=== PATIENT | female | born 1965 | race Caucasian/White ===

== ENCOUNTER → 2023-12-11 | Emergency (ER) | payer BC, SELFPAY ==
[~2023-12-11] MED LIST: NA CHLORIDE 0.9% 1,000 ML ONE; ONDANSETRON 4 MG/2 ML VIAL ONE
--- OUTSIDE RECORDS SUMMARY | 2023-12-11 08:49 | XMS REPORT | Continuity of Care Document ---
Author Name Unknown Address [address] [facility] 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 Name Role Phone Hien Navarro Attending Clinician Unavailable Problems Condition Name Condition Details Condition Category Status Onset Date Resolution Date Last Treatment Date Treating Clinician Comments Source Multiple sclerosis Multiple sclerosis Problem Active [facility] Hypertensi on HTN (hypertens ion) Problem Active [facility] Dysthymia Chronic depressive person Problem Active [facility] Dilatation of aorta Thoracic aortic ectasia Problem Active [facility] [id number] Severe major depression Problem Active [facility] Peptic ulcer disease Peptic ulcer disease Problem Active [facility] [id number] Anxiety Problem Active [facility] Spinal stenosis Spinal stenosis Problem Active [facility] [id number] Unspecifie d optic neuritis Problem Active [facility] [id number] Primary insomnia Problem Active [facility] [id number] Fever, unspecifie d fever cause Problem Active [facility] [id number] Cough Problem Active [facility] Irritable bowel syndrome with diarrhea Irritable bowel syndrome with diarrhea Problem Active [facility] Overactive bladder Overactive bladder Problem Active [facility] Trigeminal neuralgia Trigeminal neuralgia Problem Active [facility] Gastro-eso phageal reflux disease without esophagiti s Gastro-eso phageal reflux disease without esophagiti s Problem Active [facility] Social History Social Habit Start Date Stop Date Quantity Comments Source History of Tobacco Use Never Smoker [facility] Sex Assigned At [facility] Smoking Status Start Date Stop Date Source Never Smoker [facility] Medications Ordered Medication Name Filled Medication Name Start Date Stop Date Current Medication? Ordering Clinician Indication Dosage Frequency Signature (SIG) Comments Components Source Escitalopra m Oxalate Escitalopra m Oxalate 07-06 00:00: 00 Yes Na Navarro 1 tablet [facility] Escitalopra m Oxalate 10 MG Escitalopra m Oxalate 10 MG 07-06 00:00: 00 No 1{table t} QD Escitalopr am Oxalate 10 MG Escitalopra m Oxalate 10 MG Escitalopra m Oxalate 10 MG 07-06 00:00: 00 No 1{table t} QD Escitalopr am Oxalate 10 MG Trazodone HCl Trazodone HCl 04-02 00:00: 00 Yes Na Navarro 1 tablet at bedtime as needed [facility] Trazodone HCl 50 MG Trazodone HCl 50 MG 04-02 00:00: 00 No 1{table t_at_be dtime_a s_neede d} Trazodone HCl 50 MG Trazodone HCl 50 MG Trazodone HCl 50 MG 04-02 00:00: 00 No 1{table t_at_be dtime_a s_neede d} Trazodone HCl 50 MG Carvedilol Carvedilol 02-20 00:00: 00 Yes Na Navarro as directed [facility] Carvedilol 3.125 MG Carvedilol 3.125 MG 02-20 00:00: 00 No Carvedilol 3.125 MG Carvedilol 3.125 MG Carvedilol 3.125 MG 02-20 00:00: 00 No Carvedilol 3.125 MG Omeprazole Omeprazole Yes Na Navarro 1 capsule [facility] Promethazin e HCl Promethazin e HCl Yes Na Navarro 1 tablet as needed [facility] Myrbetriq Myrbetriq Yes Na Navarro 1 tablet [facility] Cozaar Cozaar Yes Na Navarro 1 tablet [facility] Prilosec OTC Prilosec OTC Yes Na Navarro 1 tablet 30 minutes before morning meal [facility] Myrbetriq 50 MG Myrbetriq 50 MG No 1{table t} QD Myrbetriq 50 MG Promethazin e HCl 25 MG Promethazin e HCl 25 MG No 1{table t_as_ne eded} QID Promethazi ne HCl 25 MG Cozaar 50 MG Cozaar 50 MG No 1{table t} QD Cozaar 50 MG Prilosec OTC 20 MG Prilosec OTC 20 MG No QD Prilosec OTC 20 MG Omeprazole 40 MG Omeprazole 40 MG No 1{capsu le} QD Omeprazole 40 MG Valacyclovi r HCl 1 GM Valacyclovi r HCl 1 GM No 1{table t} BID Valacyclov ir HCl 1 GM Myrbetriq 50 MG Myrbetriq 50 MG No 1{table t} QD Myrbetriq 50 MG Promethazin e HCl 25 MG Promethazin e HCl 25 MG No 1{table t_as_ne eded} QID Promethazi ne HCl 25 MG Cozaar 50 MG Cozaar 50 MG No 1{table t} QD Cozaar 50 MG Prilosec OTC 20 MG Prilosec OTC 20 MG No QD Prilosec OTC 20 MG Omeprazole 40 MG Omeprazole 40 MG No 1{capsu le} QD Omeprazole 40 MG Valacyclovi r HCl 1 GM Valacyclovi r HCl 1 GM No 1{table t} BID Valacyclov ir HCl 1 GM Encounters Start Date/Time End Date/Time Encounter Type Admission Type Attending [facility] Facility Care Department Encounter ID Source 2021-12-27 12:01:32 Outpatient Hien Navarro [facility] [id number] [facility] 2021-12-27 11:47:56 [facility] [id number] [facility] 2020-09-30 00:00:00 2020-09-30 00:00:00 OL DIG E/M SVC 5-10 MIN [facility] [id number] [facility] 2020-09-30 00:00:00 2020-09-30 00:00:00 (TEL) [facility] [id number] [facility] 2020-07-06 09:20:00 2020-07-06 09:20:00 [facility] [id number] [facility] 2019-10-15 11:00:00 2019-10-15 11:00:00 Outpatient [facility] Medicine [facility] [id number] [facility] 2018-03-12 11:22:00 2018-03-12 11:22:00 [facility] [id number] [facility] 2018-02-20 08:15:00 2018-02-20 08:15:00 [facility] Medicine [id number] [facility]
[2023-12-11 09:43] LABS: Absolute Lymphocytes (CBC) 2.6 K/uL (0.7-4.9); Hematocrit 45.1 % (36.0-45.0); Lymphocytes % 22.2 % (15.3-44.8); MCV 85.2 fL (80-100); MPV 8.4 fL (7.6-11.3); Platelets 267 thou/uL (152-406); RBC Red Blood Cell Count 5.29 M/uL (3.86-4.86)
--- NOTE | 2023-12-11 09:52 | RAD REPORT ---
EXAM DESCRIPTION: CT - Head Brain Wo Cont - 12/11/2023 9:20 am CLINICAL HISTORY: h/o optic neuritis/MS now with dizziness COMPARISON: No comparisons TECHNIQUE: Noncontrast head CT images were obtained without IV contrast. Multiplanar reformats were generated and reviewed. All CT scans are performed using dose optimization technique as appropriate and may include automated exposure control or mA/KV adjustment according to patient size. FINDINGS: No intracranial hemorrhage, mass, or edema. Midline structures are unremarkable. Normal ventricular caliber for age. Patchy subcortical and deep white matter hypodensities, nonspecific but suggestive of chronic small v essel ischemic changes. Miguel-white matter differentiation is preserved, without evidence of acute infarct. No abnormal extra- axial fluid collections. Mastoid air cells and visualized portions of the paranasal sinuses are clear. No acute bony findings. IMPRESSION: No evidence of an acute intracranial process. Nonspecific white matter signal abnormalities, suggestive of chronic small vessel ischemic changes.
[2023-12-11 10:02] LABS: Albumin 3.7 g/dL (3.4-5.0); Bilirubin Total 0.5 mg/dL (0.2-1.0); Potassium 3.8 mEq/L (3.5-5.1); Protein, Total 7.6 g/dL (6.4-8.2)
[2023-12-11 10:16] LABS: Specific Gravity 1.011 (1.005-1.030); Urine Bacteria <20 /HPF (<20); Urine Bilirubin NEGATIVE (Negative); Urine Blood Negative (Negative); Urine Clarity Clear (Clear); Urine Color Colorless (Yellow); Urine Glucose NEGATIVE (Negative); Urine Mucus Slight /HPF (None Seen); Urine Protein NEGATIVE (Negative); Urine RBC <5 /HPF (None Seen); Urine Urobilinogen Normal (Normal); Urine pH 5.5 (5.0-7.0)
--- NOTE | 2023-12-11 10:21 | EDPHYS ---
Physician Documentation [facility] Name: Sruthi Tapia Age: 58 yrs Sex: Female : 1965 Arrival Date: 12/11/2023 Time: 08:47 Bed 6 Private MD: ED Physician Hina Hodges HPI: 12/11 09:19 This 58 yrs old Female presents to ER via Unassigned with complaints of Dizziness, sp3 Nausea, Blurred Vision, Anxiety. 09:19 58-year-old female with a history of multiple sclerosis, hypertension, optic neuritis sp3 last diagnosed in 2017 now presents to the ED with chief complaint vomiting, dizziness and anxiety. Patient also notes that her left eye which is her baseline vision at 20% has had a slight increase in blurriness. 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 She is not on any steroids or any medication for MS at this time. She denies headache, syncope, neck pain, fever, URI symptoms, chest pain, back pain, shortness of breath, abdominal pain, diarrhea, or any other signs or symptoms on ROS at this time. She has had 2-3 episodes of emesis and mainly has had nausea. No blood or mucus in her emesis. She denies any known bad food intake, travel history, known sick contacts, or any other signs or symptoms at this time.. Historical: - Allergies: 09:41 Sulfa (Sulfonamide Antibiotics); ld1 - PMHx: 09:41 Multiple sclerosis; spinal stenosis; Hypertensive disorder; Enlarged aorta; chronic ld1 back pain; - PSHx: 09:41 Total abdominal hysterectomy; Tonsillectomy; ld1 - Immunization history:: Adult Immunizations up to date. - Social history:: Smoking status: Patient denies any tobacco usage or history of. ROS: 09:20 Constitutional: Negative for fever, chills, and weight loss, ENT: Negative for injury, sp3 pain, and discharge, Neck: Negative for injury, pain, and swelling, Cardiovascular: Negative for chest pain, palpitations, and edema, Respiratory: Negative for shortness of breath, cough, wheezing, and pleuritic chest pain, Back: Negative for injury and pain, MS/Extremity: Negative for injury and deformity, Skin: Negative for injury, rash, and discoloration, Neuro: Negative for headache, weakness, numbness, tingling, and seizure, Psych: Negative for depression, anxiety, suicide ideation, homicidal ideation, and hallucinations, Allergy/Immunology: Negative for hives, rash, and allergies, Endocrine: Negative for neck swelling, polydipsia, polyuria, polyphagia, and marked weight changes, Hematologic/Lymphatic: Negative for swollen nodes, abnormal bleeding, and unusual bruising, 09:20 All other systems are negative, Exam: 09:20 Constitutional: This is a well developed, well nourished patient who is awake, alert, sp3 and in no acute distress. Head/Face: Normocephalic, atraumatic. Eyes: Pupils equal round and reactive to light, extra-ocular motions intact. Lids and lashes normal. Conjunctiva and sclera are non-icteric and not injected. Cornea within normal limits. Periorbital areas with no swelling, redness, or edema. ENT: Nares patent. No nasal discharge, no septal abnormalities noted. External auditory canals are clear. Oropharynx with no redness, swelling, or masses, exudates, or evidence of obstruction, uvula midline. Mucous membranes moist. Neck: Trachea midline, no thyromegaly or masses palpated, and no cervical lymphadenopathy. Supple, full range of motion without nuchal rigidity, or vertebral point tenderness. No Meningismus. Chest/axilla: Normal chest wall appearance and motion. Nontender with no deformity. No lesions are appreciated. Cardiovascular: Regular rate and rhythm with a normal S1 and S2. No gallops, murmurs, or rubs. Normal PMI, no JVD. No pulse deficits. Respiratory: Lungs have equal breath sounds bilaterally, clear to auscultation and percussion. No rales, rhonchi or wheezes noted. No increased work of breathing, no retractions or nasal flaring. Abdomen/GI: Soft, non-tender, with normal bowel sounds. No distension or tympany. No guarding or rebound. No evidence of tenderness throughout. Back: No spinal tenderness. No costovertebral tenderness. Full range of motion. Skin: Warm, dry with normal turgor. Normal color with no rashes, no lesions, and no evidence of cellulitis. MS/ Extremity: Pulses equal, no cyanosis. Neurovascular intact. Full, normal range of motion. Neuro: Awake and alert, GCS 15, oriented to person, place, time, and situation. Cranial nerves II-XII grossly intact. Motor strength 5/5 in all extremities. Sensory grossly intact. Cerebellar exam normal. Normal gait. Psych: Awake, alert, with orientation to person, place and time. Behavior, mood, and affect are within normal limits. Vital Signs: 09:00 BP 145 / 82 LA Sitting (auto/reg); Pulse 65 MON; Resp 20 S; Temp 97.5(A); Pulse Ox 100% ds4 on R/A; 09:40 BP 146 / 91; Pulse 50; Resp 18; Temp 98.2(TE); Pulse Ox 100% on R/A; Weight 79.38 kg; ld1 Height 5 ft. 5 in. ; Pain 0/10; 09:43 BP 146 / 91; Pulse 49; Resp 18; Pulse Ox 100% on R/A; ld1 10:29 BP 152 / 81; Pulse 53; Resp 18; Pulse Ox 97% on R/A; ld1 09:40 Body Mass Index 29.12 (79.38 kg, 165.1 cm) ld1 09:40 Pain Scale: Adult ld1 MDM: 08:58 Patient medically screened. sp3 09:21 Data reviewed: vital signs, nurses notes, lab test result(s), radiologic studies. ED sp3 course: 58-year-old female with vomiting, dizziness and anxiety. Also mild decrease in left eye vision subjectively. Differential diagnosis includes viral syndrome, food poisoning, anxiety, biliary pathology, other GI pathology, among others. Anxiety is also in the differential along with a early recurrent optic neuritis. Workup will include CT scan of the head, laboratory values, urine analysis, ondansetron IV, normal saline IV and general supportive care. Consider steroids and referral to ophthalmology and neurology. I have also advised patient to seek other healthcare resources to help with her financial situation. Disposition pending workup and patient course.. 10:20 ED course: Workup negative. 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 I have again reiterated to her need for appropriate follow-up, even if it is [id number].. 12/11 09:11 Order name: CBC with Diff; Complete Time: 09:53 sp3 12/11 09:11 Order name: CMP; Complete Time: 10: sp3 12/11 09:11 Order name: Lipase; Complete Time: : sp3 12/11 09:11 Order name: Urinalysis w/ reflexes; Complete Time: : sp3 12/11 09:11 Order name: CT Head Brain wo Cont; Complete Time: 09:53 sp3 12/11 09:11 Order name: IV Saline Lock; Complete Time: 09:38 sp3 12/11 09:11 Order name: Labs collected and sent; Complete Time: : sp3 Administered Medications: 09:40 Drug: NS 0.9% IV 1000 ml IV at 1 bolus Per protocol; 1000 mL bolus Route: IV; Rate: 1 ld1 bolus; Site: right antecubital; 09:40 Drug: Ondansetron IVP 4 mg IVP once; over 2 minutes Route: IVP; Site: right antecubital;ld1 Disposition Summary: 12/11/23 10:21 Discharge Ordered Notes: Location: Home sp3 Condition: Stable sp3 Diagnosis - Multiple sclerosis, vomiting sp3 Followup: sp3 - With: Private Physician - When: Upon discharge from the Emergency Department - Reason: Continuance of care Followup: sp3 - With: Rufus Hamilton MD - When: Upon discharge from the Emergency Department - Reason: Continuance of care Discharge Instructions: - Discharge Summary Sheet sp3 - Nausea and Vomiting, Adult sp3 - Multiple Sclerosis sp3 Forms: - Medication Reconciliation Form sp3 - Thank You Letter sp3 - Antibiotic Education sp3 - Prescription Opioid Use sp3 - Patient Portal Instructions sp3 - Leadership Thank You Letter sp3 Prescriptions: - Prednisone 20 mg Oral Tablet - take 2 tablets ORAL route once daily for 5 days; 10 tablet; Refills: 0, Product sp3 Selection Permitted - ondansetron 8 mg Oral Tablet,disintegrating - take 1 tablet ORAL route every 12 hours; 15 tablet; Refills: 0, Product sp3 Selection Permitted Signatures: Dispatcher [employer] Jaziel Granados RN RN ll1 Steffany Brasher RN RN ld1 Hina Hodges MD MD sp3
--- NOTE | 2023-12-11 10:21 | ER ---
Nurse's Notes [facility] Name: Sruthi Tapia Age: 58 yrs Sex: Female : 1965 Arrival Date: 12/11/2023 Time: 08:47 Bed 6 Private MD: Diagnosis: Multiple sclerosis, vomiting Presentation: 12/11 09:40 Chief complaint: Patient states: Anxiety, nausea, dizziness since last night. Vision ld1 loss 2-3 weeks. Pt c/o chronic severe anxiety. Coronavirus screen: At this time, the client does not indicate any symptoms associated with coronavirus-19. Ebola Screen: No symptoms or risks identified at this time. Initial Sepsis Screen: Does the patient meet any 2 criteria? No. Patient's initial sepsis screen is negative. Does the patient have a suspected source of infection? No. Patient's initial sepsis screen is negative. Risk Assessment: Do you want to hurt yourself or someone else? Patient reports no desire to harm self or others. Onset of symptoms was December 11, 2023. 09:40 Method Of Arrival: Ambulatory ld1 09:40 Acuity: REANNA 3 ld1 Triage Assessment: 09:41 General: Appears in no apparent distress. uncomfortable, Behavior is cooperative, ld1 anxious. Pain: Denies pain. EENT: No signs and/or symptoms were reported regarding the EENT system. Neuro: Level of Consciousness is awake, alert, obeys commands, Oriented to person, place, time, situation. Cardiovascular: Capillary refill < 3 seconds Patient's skin is warm and dry. Rhythm is sinus bradycardia. Respiratory: Airway is patent Respiratory effort is even, unlabored. GI: Abdomen is round non-distended. : No signs and/or symptoms were reported regarding the genitourinary system. Derm: No deficits noted. No signs and/or symptoms reported regarding the dermatologic system. Historical: - Allergies: 09:41 Sulfa (Sulfonamide Antibiotics); ld1 - PMHx: 09:41 Multiple sclerosis; spinal stenosis; Hypertensive disorder; Enlarged aorta; chronic ld1 back pain; - PSHx: 09:41 Total abdominal hysterectomy; Tonsillectomy; ld1 - Immunization history:: Adult Immunizations up to date. - Social history:: Smoking status: Patient denies any tobacco usage or history of. Screenin:43 [facility] ED Fall Risk Assessment (Adult) History of falling in the last 3 months, ld1 including since admission No falls in past 3 months (0 pts). Abuse screen: Denies threats or abuse. Denies injuries from another. Nutritional screening: No deficits noted. Tuberculosis screening: No symptoms or risk factors identified. Assessment: 09:43 Reassessment: See triage assessment. ld1 Vital Signs: 09:00 BP 145 / 82 LA Sitting (auto/reg); Pulse 65 MON; Resp 20 S; Temp 97.5(A); Pulse Ox 100% ds4 on R/A; 09:40 BP 146 / 91; Pulse 50; Resp 18; Temp 98.2(TE); Pulse Ox 100% on R/A; Weight 79.38 kg; ld1 Height 5 ft. 5 in. ; Pain 0/10; 09:43 BP 146 / 91; Pulse 49; Resp 18; Pulse Ox 100% on R/A; ld1 10:29 BP 152 / 81; Pulse 53; Resp 18; Pulse Ox 97% on R/A; ld1 09:40 Body Mass Index 29.12 (79.38 kg, 165.1 cm) ld1 09:40 Pain Scale: Adult ld1 ED Course: 08:48 Patient arrived in ED. im 08:48 Arm band placed on Patient placed in an exam room, on a stretcher. ll1 08:57 Hina Hodges MD is Attending Physician. sp3 09:21 CT Head Brain wo Cont In Process Unspecified. EDMS 09:21 Steffany Brasher, RN is Primary Nurse. ld1 09:38 Inserted saline lock: 22 gauge in right antecubital area, using aseptic technique. ds4 Blood collected. 09:40 CBC with Diff Sent. ld1 09:40 CMP Sent. ld1 09:40 Lipase Sent. ld1 09:41 Triage completed. ld1 09:43 Patient has correct armband on for positive identification. Placed in gown. Bed in low ld1 position. Call light in reach. Side rails up X2. elementary math tutor on. Pulse ox on. NIBP on. Door closed. Noise minimized. Warm blanket given. 09:43 No provider procedures requiring assistance completed. ld1 10:21 Rufus Hamilton MD is Referral Physician. sp3 10:21 Provided Education on: na. ko1 10:22 IV discontinued, intact, bleeding controlled, No redness/swelling at site. Pressure ko1 dressing applied. Administered Medications: : Drug: NS 0.9% IV 1000 ml IV at 1 bolus Per protocol; 1000 mL bolus Route: IV; Rate: 1 ld1 bolus; Site: right antecubital; :40 Drug: Ondansetron IVP 4 mg IVP once; over 2 minutes Route: IVP; Site: right antecubital;ld1 Medication: 09:43 VIS not applicable for this client. ld1 Outcome: 10:21 Discharge ordered by . sp3 10: Discharged to home via wheelchair, with family, ko1 10: Condition: stable 10:22 Discharge instructions given to patient, family, Instructed on discharge instructions, follow up and referral plans. medication usage, Demonstrated understanding of instructions, follow-up care, medications, Prescriptions given X 2, 10:30 Discharged to home ambulatory, with family, ld1 10:30 Condition: stable 10:30 Discharge instructions given to patient, Instructed on discharge instructions, follow up and referral plans. medication usage, Demonstrated understanding of instructions, follow-up care, medications, Prescriptions given X 2, 10:30 Patient left the ED. ld1 Signatures: Dispatcher [employer] EDMS Miko Whitney ds4 Jaziel Narayanan RN RN ll1 Steffany Brasher RN RN ld1 Hina Hodges MD MD sp3 Deidra Richardson RN RN ko1 Renée Mcgrath Alyssa aw1 Corrections: (The following items were deleted from the chart) 09:05 08:52 COVID swab sent to lab. Flu and/or RSV swab sent to lab. Strep swab sent to lab. ko1 aw1
[2023-12-11 11:15] VITALS: BP 152/81; TEMP 98.2; O2SAT 97
== END ==
LOC: ER 08:47
DX: R11.10 Vomiting, unspecified (principal); G35 Multiple sclerosis
CPT/HCPCS: 36415; 70450; 80053; 81001; 83690; 85025; 96374; 99285; J2405; J7030

== ENCOUNTER → 2024-02-11 | Emergency (ER) | payer SELFPAY ==
[~2024-02-11] MED LIST changes: +LORazepam 2 MG/ML VIAL ONE; -NA CHLORIDE 0.9% 1,000 ML ONE; -ONDANSETRON 4 MG/2 ML VIAL ONE
[2024-02-11 11:29] LABS: Absolute Eosinophils 0.1 K/uL (0-0.5); Absolute Lymphocytes (CBC) 1.9 K/uL (0.7-4.9); Basophils % 0.4 % (0-1.3); Eosinophils % 0.5 % (0-4.4); Hematocrit 44.1 % (36.0-45.0); Hemoglobin 15.1 g/dL (12.0-15.0); Lymphocytes % 17.9 % (15.3-44.8); MCV 85.5 fL (80-100); MPV 8.3 fL (7.6-11.3); Platelets 322 thou/uL (152-406); RBC Red Blood Cell Count 5.15 M/uL (3.86-4.86)
[2024-02-11 11:45] LABS: Anion Gap 8.8 mEq/L (5.0-15.0); Potassium 3.8 mEq/L (3.5-5.1); Troponin High Sensitivity 13.4 pg/mL (<58.9)
--- NOTE | 2024-02-11 11:46 | RAD REPORT ---
EXAM DESCRIPTION: [facility]ami[facility] Single View02/11/2024 11:32 am CLINICAL HISTORY: Chest pain COMPARISON: 2013 FINDINGS: The lungs appear clear of acute infiltrate. The heart is normal size IMPRESSION: No acute abnormalities displayed
--- NOTE | 2024-02-11 12:10 | EDPHYS ---
Physician Documentation [facility] Name: Sruthi Tapia Age: 58 yrs Sex: Female : 1965 Arrival Date: 02/11/2024 Time: 10:36 Bed 14 Private MD: ED Physician Dmitri Dang HPI: 02/10 11:19 This 58 yrs old Female presents to ER via Wheelchair with complaints of Chest Pain, rn High Blood Pressure, Breathing Difficulty. 11:19 The patient or guardian reports chest pain that is located primarily in the anterior rn chest wall, left. Onset: last night. The pain does not radiate. Associated signs and symptoms: Pertinent positives: shortness of breath, Pertinent negatives: abdominal pain, cough, lightheadedness, near syncope, syncope. The chest pain is described as sharp, stabbing. Duration: The patient or guardian reports multiple episodes, that are intermittent. Modifying factors: The symptoms are alleviated by nothing. the symptoms are aggravated by nothing. Severity of pain: At its worst the pain was moderate in the emergency department the pain is unchanged. The patient has not experienced similar symptoms in the past. Patient reports left-sided chest pain, nonradiating, associated with shortness of breath and feelings of anxiety. Patient states blood pressure has been high at home, shows me the readings in 140s over 90s. Does not take blood pressure medication. Has been diagnosed with anxiety and panic attacks but refuses to take any medication. Patient reports feeling very anxious currently. Recently in the hospital and discharged on steroids for MS flare. No cardiac or lung problems in the past. Does not feel ill. No cough or fever. No trauma to chest. No history of DVT or PE. No lower extremity swelling. Historical: - Allergies: 10:49 Sulfa (Sulfonamide Antibiotics); iw - PSHx: 10:49 Tonsillectomy; Total abdominal hysterectomy; iw - Immunization history:: Adult Immunizations up to date. - Social history:: Smoking status: Patient denies any tobacco usage or history of. - Family history:: not pertinent. - Hospitalizations: : No recent hospitalization is reported. ROS: 11:19 Constitutional: Negative for fever, chills, and weight loss, Neck: Negative for injury, rn pain, and swelling, Cardiovascular: Positive for chest pain Respiratory: Positive for shortness of breath, negative for cough Abdomen/GI: Negative for abdominal pain, nausea, vomiting, diarrhea, and constipation, MS/Extremity: Negative for injury and deformity, Skin: Negative for injury, rash, and discoloration, Neuro: Negative for headache, weakness, numbness, tingling, and seizure, Exam: 11:19 Constitutional: This is a well developed, well nourished patient who is awake, alert, rn very anxious appearing, hyperventilating Head/Face: Normocephalic, atraumatic. ENT: Moist mucous membranes, no stridor Cardiovascular: Regular rate and rhythm. No pulse deficits. Respiratory: Hyperventilating, no wheezing. Speaking full sentences. Abdomen/GI: Soft, non-tender MS/ Extremity: Pulses equal, no cyanosis. Neurovascular intact. Full, normal range of motion. Equal circumference. Neuro: Awake and alert, GCS 15 Vital Signs: 10:57 BP 129 / 95; Pulse 76; Resp 18; Temp 97.9(TE); Pulse Ox 99% on R/A; Weight 83.91 kg; ld1 Height 5 ft. 4 in. ; Pain 8/10; 11:20 BP 115 / 79; Pulse 69; Resp 21; Pulse Ox 97% on R/A; me1 12:43 BP 116 / 82; Pulse 72; Resp 15; Temp 98.1; Pulse Ox 99% on R/A; me1 10:57 Body Mass Index 31.75 (83.91 kg, 162.56 cm) ld1 10:57 Pain Scale: Adult ld1 MDM: 10:39 Patient medically screened. rn 12:04 Differential diagnosis: acute myocardial infarction, acute pericarditis, anxiety, chest rn wall pain, costochondritis, esophagitis, gastritis, gastroesophageal reflux disease (GERD), pericarditis, pleurisy, pneumothorax, pulmonary embolus. HEART Score: History: Slightly Suspicious (0), ECG: Normal (0), Age: < or = 45 years (0), Risk Factors: No Risk Factors Known (0), Troponin: < or = 1 x Normal Limit (0), Total Score = 0. Data reviewed: vital signs, nurses notes, lab test result(s), EKG, radiologic studies, and as a result, I will discharge patient. Counseling: I had a detailed discussion with the patient and/or guardian regarding the historical points, exam findings, and any diagnostic results supporting the discharge/admit diagnosis, lab results, radiology results, the need for outpatient follow up, to return to the emergency department if symptoms worsen or persist or if there are any questions or concerns that arise at home. Special discussion: I discussed with the patient/guardian in detail that at this point there is no indication for admission to the hospital. It is understood, however, that if the symptoms persist or worsen the patient needs to return immediately for re-evaluation. 02/10 11:03 Order name: CBC with Diff rn 02/10 11:03 Order name: D-Dimer rn 02/10 11:34 Order name: CBC with Automated Diff EDMS 02/10 11:35 Order name: D-Dimer; Complete Time: 11:59 EDMS 02/10 11:45 Order name: Basic Metabolic Panel; Complete Time: 11:59 EDMS 02/10 11:45 Order name: Troponin High Sensitivity; Complete Time: 11:59 EDMS 02/10 11:45 Order name: NT PRO-BNP; Complete Time: 11:59 EDDE 02/10 12:50 Order name: Manual Differential EDMS 02/10 10:44 Order name: XRAY Chest (1 view) rn 02/10 11:47 Order name: RAD; Complete Time: 11:59 EDMS 02/10 11:03 Order name: EKG; Complete Time: 17:07 rn 02/10 11:03 Order name: Cardiac monitoring; Complete Time: 11:04 rn 02/10 11:03 Order name: EKG - Nurse/Tech; Complete Time: 11:04 rn 02/10 11:03 Order name: IV Saline Lock; Complete Time: 11: rn 02/10 11:03 Order name: Labs collected and sent; Complete Time: 11: rn 02/10 11:03 Order name: O2 Per Protocol; Complete Time: 11: rn 02/10 11:03 Order name: O2 Sat Monitoring; Complete Time: 11:04 rn Administered Medications: 11:05 Drug: Ativan IVP 0.5 mg IVP once Route: IVP; Site: left antecubital; rs5 12:07 Follow up: Response: No adverse reaction; Anxiety decreased me1 Disposition Summary: 02/11/24 12:10 Discharge Ordered Notes: Location: Home rn Problem: new rn Symptoms: have improved rn Condition: Stable rn Diagnosis - Chest pain, unspecified rn - Anxiety disorder, unspecified rn Followup: rn - With: Private Physician - When: As needed - Reason: Recheck today's complaints, Re-evaluation by your physician Discharge Instructions: - Discharge Summary Sheet rn - Panic Attack rn - Nonspecific Chest Pain, Adult rn - Generalized Anxiety Disorder, Adult rn - Managing Anxiety, Adult rn Forms: - Medication Reconciliation Form rn - Thank You Letter rn - Antibiotic audit practice intern - Prescription Opioid Use rn - Patient Portal Instructions rn - Leadership Thank You Letter rn Prescriptions: - Ativan 0.5 mg Oral tablet - take 1 tablet ORAL route every 8-12 hours As needed; 5 tablet; Refills: 0, rn Product Selection Permitted Signatures: Dispatcher [employer] Faith Beth, RN RN Dmitri Dow MD MD rn Sims, Lauren, RN RN ld1 Victorino Nicholson RN RN rs5 Kimberly Driver RN me1
--- NOTE | 2024-02-11 12:10 | ER ---
Nurse's Notes [facility] Name: Sruthi Tapia Age: 58 yrs Sex: Female : 1965 Arrival Date: 02/11/2024 Time: 10:36 Bed 14 Private MD: Diagnosis: Chest pain, unspecified;Anxiety disorder, unspecified Presentation: 02/10 10:42 Chief complaint: Chief complaint: Patient states: has high BP, chest pain, legs are iw numb since yesterday , has hx of MS ,was admitted to hospital last month and had high dose IV steroids , also is having urinary frequency. 10:47 Coronavirus screen: At this time, the client does not indicate any symptoms associated iw with coronavirus-19. Ebola Screen: Patient negative for fever greater than or equal to 101.5 degrees Fahrenheit, and additional compatible Ebola Virus Disease symptoms Patient denies exposure to infectious person. Patient denies travel to an Ebola-affected area in the 21 days before illness onset. No symptoms or risks identified at this time. Initial Sepsis Screen: Does the patient meet any 2 criteria? No. Patient's initial sepsis screen is negative. Does the patient have a suspected source of infection? No. Patient's initial sepsis screen is negative. Risk Assessment: Do you want to hurt yourself or someone else? Patient reports no desire to harm self or others. Onset of symptoms was February 10, 2024. 10:47 Method Of Arrival: Wheelchair iw 10:47 Acuity: REANNA 3 iw Historical: - Allergies: 10:49 Sulfa (Sulfonamide Antibiotics); iw - PSHx: 10:49 Tonsillectomy; Total abdominal hysterectomy; iw - Immunization history:: Adult Immunizations up to date. - Social history:: Smoking status: Patient denies any tobacco usage or history of. - Family history:: not pertinent. - Hospitalizations: : No recent hospitalization is reported. Screenin:57 [facility] ED Fall Risk Assessment (Adult) History of falling in the last 3 months, ld1 including since admission No falls in past 3 months (0 pts). Abuse screen: Denies threats or abuse. Denies injuries from another. Nutritional screening: No deficits noted. Tuberculosis screening: No symptoms or risk factors identified. Assessment: 10:57 General: Appears in no apparent distress. uncomfortable, Behavior is anxious, ld1 inappropriate for age. Pain: Complains of pain in chest Pain does not radiate. Pain currently is 8 out of 10 on a pain scale. Quality of pain is described as throbbing, Pain began 2 hours ago. Is continuous. Neuro: Level of Consciousness is awake, alert, obeys commands, Oriented to person, place, time, situation. Cardiovascular: Capillary refill < 3 seconds Patient's skin is warm and dry. Rhythm is sinus rhythm. Respiratory: Airway is patent Respiratory effort is even, labored. GI: Abdomen is round non-distended. : No signs and/or symptoms were reported regarding the genitourinary system. EENT: No signs and/or symptoms were reported regarding the EENT system. Derm: No signs and/or symptoms reported regarding the dermatologic system. Musculoskeletal: No signs and/or symptoms reported regarding the musculoskeletal system. Vital Signs: 10:57 BP 129 / 95; Pulse 76; Resp 18; Temp 97.9(TE); Pulse Ox 99% on R/A; Weight 83.91 kg; ld1 Height 5 ft. 4 in. ; Pain 8/10; 11:20 BP 115 / 79; Pulse 69; Resp 21; Pulse Ox 97% on R/A; me1 12:43 BP 116 / 82; Pulse 72; Resp 15; Temp 98.1; Pulse Ox 99% on R/A; me1 10:57 Body Mass Index 31.75 (83.91 kg, 162.56 cm) ld1 10:57 Pain Scale: Adult ld1 ED Course: 10:37 Patient arrived in ED. mg5 10:39 Dmitri Dang MD is Attending Physician. rn 10:49 Triage completed. iw 10:57 Steffany Brasher, JANET is Primary Nurse. ld1 10:57 Patient has correct armband on for positive identification. Placed in gown. Bed in low ld1 position. Call light in reach. Side rails up X2. cardiac monitor technician on. Pulse ox on. NIBP on. Door closed. Noise minimized. Warm blanket given. 10:57 Arm band placed on. me1 10:57 No provider procedures requiring assistance completed. Inserted saline lock: 22 gauge ld1 in right forearm, using aseptic technique. Blood collected. Patient maintains SpO2 saturation greater than 95% on room air. 12:41 Provided Education on: Discharge instructions. Verbalized understanding. . me1 12:41 IV discontinued, intact, bleeding controlled, No redness/swelling at site. Pressure me1 dressing applied. Administered Medications: 11:05 Drug: Ativan IVP 0.5 mg IVP once Route: IVP; Site: left antecubital; rs5 12:07 Follow up: Response: No adverse reaction; Anxiety decreased me1 Medication: 10:57 VIS not applicable for this client. ld1 Outcome: 12:10 Discharge ordered by MD. mann 12:42 Discharged to home via wheelchair, with significant other, me1 12:42 Condition: stable 12:42 Discharge instructions given to patient, significant other, Instructed on discharge instructions, follow up and referral plans. medication usage, Demonstrated understanding of instructions, follow-up care, medications, Prescriptions given X 1, 12:56 Patient left the ED. me1 Signatures: Faith Barnhart RN RN iw Dmitri Dang MD MD rn Sims, Lauren, RN RN ld1 Victorino Nicholson RN RN rs5 Kimberly Driver RN RN me1 Veronica Vega mg5 Corrections: (The following items were deleted from the chart) 10:49 10:42 Chief complaint: [facility]
[2024-02-11 12:49] LABS: Band Neutrophils 1 % (0-1); Eosinophils 1 % (0-3)
[2024-02-11 12:50] LABS: Blood Morphology Comment NOT SEEN (NOT SEEN); Platelet Estimate ADEQ
[2024-02-11 13:27] VITALS: BP 116/82; TEMP 98.1; O2SAT 99
== END ==
LOC: ER 10:36
DX: F41.9 Anxiety disorder, unspecified (principal)
CPT/HCPCS: 36415; 71045; 80048; 83880; 84484; 85025; 85379

== ENCOUNTER 2024-05-18 12:25 | Emergency (ER) | payer SELFPAY ==
--- OUTSIDE RECORDS SUMMARY | 2024-05-18 12:29 | XMS REPORT | Continuity of Care Document ---
Author Name Unknown Address [address] [facility] [address] [place] [address] [facility] Address [address] [facility] [address] [place] [address] Care Team Providers Care Wellness Nurse Name Role Phone Hien Navarro Primary Care Physician [phone] Hien Navarro Attending Clinician Unavailable Mishel Gibson Attending Clinician Giovana Foley RN Attending Clinician [phone] Sowmya Machuca LVN Attending Clinician [phone] OLY HODGES Attending Clinician Unavailable Jessie Grimaldo MD Attending Clinician [phone] Ellis Carrington MD, Oly Attending Clinician [phone] Anesthesiology Attending Clinician Unavailable Jose Sapp MD Attending Clinician [phone] Fritz Santiago MD Attending Clinician [phone] Pramod Marcial MD Attending Clinician [phone] [facility], Care Transition Attending Clinician Unavailable OLY HODGES Admitting Clinician Unavailable Ellis Carrington MD, Oly Admitting Clinician [phone] Payers Payer Name Policy Type Policy Number Effective Date Expirati on Date Source 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 06-07 00:00: 00 [facility] Hypertensi on HTN (hypertens ion) Problem Active [facility] Dysthymia Chronic depressive person Problem Active [facility] Dilatation of aorta Thoracic aortic ectasia Problem Active [facility] [id number] Severe major depression Problem Active [facility] Peptic ulcer disease Peptic ulcer disease Problem Active [facility] [id number] Anxiety Problem Active [facility] Spinal stenosis Spinal stenosis Problem Active [facility] [id number] Primary insomnia Problem Active [facility] [id number] Fever, unspecifie d fever cause Problem Active [facility] [id number] Cough Problem Active [facility] Irritable bowel syndrome with diarrhea Irritable bowel syndrome with diarrhea Problem Active [facility] Overactive bladder Overactive bladder Problem Active [facility] Trigeminal neuralgia Trigeminal neuralgia Problem Active [facility] Gastro-eso phageal reflux disease without esophagiti s Gastro-eso phageal reflux disease without esophagiti s Problem Active [facility] Allergies, Adverse Reactions, Alerts Allergy Name Allergy Type Status Severity Reaction(s) Onset Date Inactive Date Treating Clinician Comments Source Sulfa (Sulfona mide Antibiot ics) Propensi ty to adverse reaction s Active Rash 06-02 00:00: 00 [facility] SULFA (SULFONA MIDE ANTIBIOT ICS) Drug Class Active Rash 06-02 00:00: 00 [facility] 0 Drug allergy Active Unknown [facility] Social History Social Habit Start Date Stop Date Quantity Comments [facility] History of Social function 2024-02-04 00:00:00 2024-02-04 00:00:00 [facility] Tobacco use and exposure 2017-06-07 00:00:00 2017-06-07 00:00:00 Smokeless tobacco non-user [facility] Sex assigned at 1965 00:00:00 1965 00:00:00 [facility] Smoking Status Start Date Stop Date Source Never Smoker [facility] Smokes tobacco daily 2017-06-07 00:00:00 [facility] Medications Ordered Medication Name Filled Medication Name Start Date Stop Date Current Medication? Ordering Clinician Indication Dosage Frequency Signature (SIG) Comments Components Source lidocaine 5 % (700 mg/patch) patch 04-13 00:00: 00 Yes [id number] 1{patch } Apply 1 Patch to area(s) in the morning. [facility] busPIRone 5 mg tablet 02-19 00:00: 00 Yes [id number] 5mg Take 1 tablet by mouth in the morning and 1 tablet in the evening. [facility] aspirin 81 mg chewable tablet 02-03 10:53: 46 Yes 81mg Take 81 mg by mouth daily. Indication s: Safety coded- non chewable [facility] tamsulosin 0.4 mg 24 hr capsule 01-15 00:00: 00 Yes [id number] .4mg Take 1 capsule by mouth in the morning. [facility] pregabalin 75 mg capsule 01-15 00:00: 00 Yes [id number] 75mg Take 1 capsule by mouth in the morning and 1 capsule in the evening. [facility] hydrOXYzine 25 mg tablet 01-15 00:00: 00 Yes [id number] 25mg Take 1 tablet by mouth every 6 (six) hours. [facility] vitamin B-12 1,000 mcg tablet 01-14 00:00: 00 Yes [id number] 1000ug Take 1 tablet by mouth in the morning. [facility] pyridoxine (VITAMIN B-6) tablet 50 mg 01-11 15:00: 00 Yes 50mg 50 mg, Oral, DAILY, First dose on Sat01/11/24 at 0900, Until Discontinu ed, Routine [facility] pyridoxine, vitamin B6, 50 mg tablet 01-11 00:00: 00 Yes [id number] 50mg Take 1 tablet by mouth in the morning. [facility] DULoxetine 60 mg capsule 01-11 00:00: 00 01-10 00:00 :00 No [id number] 60mg Take 1 capsule by mouth in the morning. [facility] predniSONE 20 mg tablet 01-11 00:00: 00 01-10 00:00 :00 No [id number] Take 4 tablets by mouth daily for 11 days, THEN 1 tablet daily for 1 day, THEN 0.5 tablets every other day for 4 days. [facility] proCHLORper azine (COMPAZINE) tablet 10 mg 01-10 20:15: 00 01-10 19:31 :00 No 10mg 10 mg, Oral, ONCE NOW, 1 dose, On Sat01/10/24 at 1415, Routine [facility] magnesium oxide (MAG-OX 400) tablet 800 mg 01-10 20:15: 00 01-10 19:31 :00 No 800mg 800 mg, Oral, ONCE NOW, 1 dose, On Sat01/10/24 at 1415, Routine [facility] ketorolac (TORADOL) tablet 10 mg 01-10 20:15: 00 01-10 19:31 :00 No 10mg 10 mg, Oral, ONCE NOW, 1 dose, On Sat01/10/24 at 1415, Routine [facility] gabapentin (NEURONTIN) capsule 300 mg 01-10 20:00: 00 Yes 300mg 300 mg, Oral, TID, First dose on Sat01/10/24 at 1400, Until Discontinu ed, Routine [facility] pyridoxine (vitamin B6) (VITAMIN B6) tablet 100 mg 01-10 15:30: 00 01-10 16:23 :00 No 100mg 100 mg, Oral, ONCE NOW, 1 dose, On Sat01/10/24 at 0930, Routine [facility] carvedilol 6.25 mg tablet 01-10 14:29: 03 Yes 6.25mg Take 6.25 mg by mouth 2 (two) times daily with meals. [facility] losartan 50 mg tablet 01-10 14:29: 03 Yes 50mg Take 50 mg by mouth daily. [facility] aspirin 81 mg chewable tablet 01-10 14:29: 03 Yes 81mg Take 81 mg by mouth daily. Indication s: Safety coded- non chewable [facility] methylPREDN ISolone sodium succinate (SOLU-MEDRO L) 1,000 mg in D5W 250 mL VIAL-MATE IV piggyback 01-10 12:00: 00 01-10 15:15 :00 No 1000mg 1,000 mg, Intravenou s, DAILY, 1 dose, First dose (after last modificati on) on Sat01/10/24 at 0600, Administer over 60 Minutes, 250 mL [facility] cholecalcif makayla, vitamin D3, 25 mcg (1,000 unit) tablet 01-10 00:00: 00 Yes [id number] 2000U Take 2 tablets by mouth in the morning. [facility] dimethyl fumarate (TECFIDERA) 120 mg capsule 01-10 00:00: 00 07-16 04:59 :00 No [id number] Take 1 capsule by mouth 2 (two) times daily for 7 days, THEN 2 capsules 2 (two) times daily for 180 days. [facility] diazePAM 10 mg tablet 01-10 00:00: 00 01-10 00:00 :00 No [id number] 10mg Take 1 tablet by mouth 3 (three) times daily as needed (Anxiety). [facility] phenoL (SORE THROAT (PHENOL)) 1.4 % spray bottle 1 [place] 01-09 23:47: 35 Yes 1{spray } 1 [place], Oral, PRN, Starting on Cynthia 01/09/24 at 1747, Until Discontinu ed, Routine, Sore throat [facility] lactated ringers IV infusion 1,000 mL 01-09 21:00: 00 Yes 1000mL at 75 mL/hr, 1,000 mL, IV Infusion, CONTINUOUS , Starting on Cynthia 01/09/24 at 1500, Until Discontinu ed, Routine, PACU [facility] ketorolac (TORADOL) injection 30 mg 01-09 20:49: 38 01-09 21:22 :00 No 30mg 30 mg, Slow IV Push, PRN, 1 dose, Starting on Cynthia 01/09/24 at 1449, Until Cynthia 01/09/24 at 1522, Routine, Pain (scale 4-6), PACU [facility] ondansetron (ZOFRAN (PF)) injection 4 mg 01-09 20:49: 38 01-09 21:31 :00 No 4mg 4 mg, Slow IV Push, PRN, 1 dose, Starting on Cynthia 01/09/24 at 1449, Until Cynthia 01/09/24 at 1531, Routine, Nausea and Vomiting (N/V), PACU [facility] gadobenate dimeglumine (MULTIHANCE -15 mL) injection 14.96 mL 01-09 20:30: 00 01-09 19:53 :00 No [id number] .2mL/kg 14.96 mL (0.2 mL/kg ?74.8 kg), Intravenou s, ONCE, 1 dose, On Cynthia 01/09/24 at 1430, Routine [facility] diazePAM (VALIUM) tablet 10 mg 01-09 18:22: 10 Yes 10mg 10 mg, Oral, TIDPRN, Starting on Cynthia 01/09/24 at 1222, Until Discontinu ed, Routine, Anxiety [facility] cholecalcif makayla (vitamin D3) tablet 1,000 Units 01-09 15:00: 00 Yes 1000U 1,000 Units, Oral, DAILY, First dose on Sat01/09/24 at 0900, Until Discontinu ed, Routine [facility] Sliding Scale Insulin - Lispro (HumaLOG) 01-09 03:00: 00 Yes Subcutaneo us, TID MEALS+HS, First dose on Sat01/08/24 at 2100, Until Discontinu ed, Routine [facility] glucagon (GLUCAGEN DIAGNOSTIC KIT) injection 1 mg 01-09 02:39: 56 Yes 1mg 1 mg, Intramuscu lar, PRN, Starting on Sat01/08/24 at 2038, Until Discontinu ed, STEPHANIE, Blood Glucose < or = 70 mg/dL and patient is NPO, unable to swallow or has mental changes. [facility] dextrose 50 % in water (D50W) injection 25 mL 01-09 02:39: 56 Yes 25mL 25 mL, Slow IV Push, PRN, Starting on Sat01/08/24 at 2038, Until Discontinu ed, STEPHANIE, Blood Glucose < or = 70 mg/dL and patient is NPO, unable to swallow or has mental status changes. [facility] melatonin (MELATIN) tablet 3 mg 01-09 02:39: 15 Yes 3mg 3 mg, Oral, QHSPRN, Starting on Sat01/08/24 at 2038, Until Discontinu ed, Routine, Insomnia [facility] barium sulfate (E-Z DISK) tablet 700 mg 01-08 16:30: 00 01-08 16:30 :00 No [id number] 700mg 700 mg, Oral, ONCE, 1 dose, On Sat01/08/24 at 1030, Routine [facility] barium sulfate (VARIBAR THIN LIQUID) 81 % (w/w) oral powder 15 g 01-08 16:30: 00 01-08 16:30 :00 No [id number] 15g 15 g, Oral, ONCE, 1 dose, On Sat01/08/24 at 1030, [facility] DULoxetine (CYMBALTA) capsule 60 mg 01-08 15:00: 00 Yes 60mg 60 mg, Oral, DAILY, First dose (after last modificati on) on Sat01/08/24 at 0900, Until Discontinu ed, Routine [facility] aspirin chewable tablet 81 mg 01-08 15:00: 00 Yes 81mg 81 mg, Oral, DAILY, First dose on Sat01/08/24 at 0900, Until Discontinu ed, Routine [facility] nicotine (NICODERM) 21 mg/24 hr patch 1 Patch 01-07 17:15: 00 Yes 1{patch } 1 Patch, Topical, Administer over 24 Hours, Q24H, First dose on Sat01/07/24 at 1115, Until Discontinu ed, Routine [facility] DULoxetine (CYMBALTA) capsule 30 mg 01-07 17:00: 00 01-07 17:17 :00 No 30mg 30 mg, Oral, ONCE NOW, 1 dose, On Sat01/07/24 at 1100, Routine [facility] acetaminoph en (TYLENOL) tablet 650 mg 01-07 15:29: 13 Yes 650mg 650 mg, Oral, Q6HPRN, Starting on Sat01/07/24 at 0929, Until Discontinu ed, Routine, Pain (scale 1-3), Pain (scale 4-6) [facility] psyllium husk (METAMUCIL (SUGAR FREE)) 3.4 gram oral powder packet 1 Packet 01-07 15:00: 00 Yes 1{packe t} 1 Packet, Oral, DAILY, First dose on Sat01/07/24 at 0900, Until Discontinu ed, Routine [facility] cyanocobala min (DODEX) injection 1,000 mcg 01-07 15:00: 00 01-14 14:59 :00 No 1000ug [Order 1 Start] Name: cyanocobal dhillon (DODEX) injection 1,000 mcg Signed Summary: 1,000 mcg, Intramuscu lar, DAILY, 7 doses, First dose on Sat01/07/24 at 0900, Last dose on Sat01/13/24 at 0900, Routine [Order 1 End] [Order 2 Start] Name: vitamin B-12 (CYANOCOBA JUAN) tablet 1,000 mcg Signed Summary: 1,000 mcg, Oral, DAILY, First dose on Sat01/14/24 at 0900, Until Discontinu ed, Routine [Order 2 End] [facility] LORazepam (ATIVAN) tablet 1 mg 01-07 14:57: 09 01-07 20:56 :00 No 1mg 1 mg, Oral, PRN, 1 dose, Starting on Sat01/07/24 at 0857, Until Sat01/07/24 at 1456, Routine, before MRI [facility] melatonin (MELATIN) tablet 3 mg 01-07 03:00: 00 Yes 3mg 3 mg, Oral, QHS, First dose on Sat01/06/24 at 2100, Until Discontinu ed, Routine [facility] bisacodyL (DULCOLAX) tablet 5 mg 01-07 02:45: 00 Yes 5mg 5 mg, Oral, DAILY, First dose (after last modificati on) on Sat01/06/24 at 2044, Until Discontinu ed, Routine [facility] carvediloL (COREG) tablet 6.25 mg 01-07 02:45: 00 Yes 6.25mg 6.25 mg, Oral, BID MEALS, First dose (after last modificati on) on Sat01/06/24 at 2044, Until Discontinu ed, [facility] DULoxetine (CYMBALTA) capsule 30 mg 01-07 02:45: 00 01-07 16:05 :35 No 30mg 30 mg, Oral, DAILY, First dose (after last modificati on) on Sat01/06/24 at 2044, Until Discontinu ed, [facility]ine [facility] heparin (porcine) injection 5,000 Units 01-07 02:00: 00 Yes 5000U 5,000 Units, Subcutaneo us, Q12H, First dose on Sat01/06/24 at 2000, Until Discontinu ed, Routine [facility] famotidine (PEPCID AC) tablet 20 mg 01-07 02:00: 00 Yes 20mg 20 mg, Oral, BID, First dose on Sat01/06/24 at 2000, Until Discontinu ed, Routine [facility] methylPREDN ISolone sodium succinate (SOLU-MEDRO L) 1,000 mg in D5W 250 mL VIAL-MATE IV piggyback 01-06 23:45: 00 01-09 17:18 :06 No 1000mg 1,000 mg, Intravenou s, DAILY, 5 doses, First dose on Sat01/06/24 at 1745, Last dose on Sat01/10/24 at 0900, Administer over 60 Minutes, 250 mL [facility] NaCl 0.9% (NS) IV infusion 1,000 mL 01-06 22:45: 00 01-07 22:44 :00 No 1000mL at 100 mL/hr, IV Infusion, CONTINUOUS , Starting on Sat01/06/24 at 1645, Until Sat01/07/24 at 1644, Routine [facility] hydrOXYzine (ATARAX) tablet 10 mg 01-06 22:45: 00 01-06 22:47 :00 No 10mg 10 mg, Oral, ONCE, 1 dose, On Sat01/06/24 at 1645, Routine [facility] proCHLORper azine (COMPAZINE) tablet 10 mg 01-06 22:17: 13 01-10 19:25 :21 No 10mg 10 mg, Oral, Q6HPRN, Starting on Sat01/06/24 at 1617, Until Sat01/10/24 at 1325, Routine, Nausea and Vomiting (N/V) [facility] lidocaine-p rilocaine (EMLA) 2.5-2.5 % cream 01-06 22:15: 00 Yes Topical, DAILY, First dose on Sat01/06/24 at 1615, Until Discontinu ed, Routine [facility] ketorolac (TORADOL) injection 30 mg 01-06 22:13: 45 01-08 16:31 :00 No 30mg 30 mg, Slow IV Push, Q8HPRN, 2 doses, Starting on Sat01/06/24 at 1613, Until Cynthia 01/09/24 at 2359, Routine, Pain (scale 7-10) [facility] acetaminoph en (TYLENOL) tablet 500 mg 01-06 22:13: 45 01-07 15:31 :40 No 500mg 500 mg, Oral, Q6HPRN, Starting on Sat01/06/24 at 1613, Until Sat01/07/24 at 0931, Routine, Pain (scale 1-3), Pain (scale 4-6) [facility] LORazepam (ATIVAN) tablet 2 mg 01-06 22:13: 23 01-07 02:45 :00 No 2mg 2 mg, Oral, PRN, 1 dose, Starting on Sat01/06/24 at 1613, Until Sat01/06/24 at 2045, Routine, for MRI [facility] carvedilol 6.25 mg tablet 01-06 17:30: 53 Yes 6.25mg Take 6.25 mg by mouth 2 (two) times daily with meals. [facility] losartan 50 mg tablet 01-06 17:30: 53 Yes 50mg Take 50 mg by mouth daily. [facility] aspirin 81 mg chewable tablet 01-06 17:30: 53 Yes 81mg Take 81 mg by mouth daily. Indication s: Safety coded- non chewable [facility] Escitalopra m Oxalate Escitalopra m Oxalate 07-06 00:00: 00 Yes Na Navarro 1 tablet [facility] Escitalopra m Oxalate 10 MG Escitalopra m Oxalate 10 MG 07-06 00:00: 00 No 1{table t} QD Escitalopr am Oxalate 10 MG Escitalopra m Oxalate 10 MG Escitalopra m Oxalate 10 MG 07-06 00:00: 00 No 1{table t} QD Escitalopr am Oxalate 10 MG Trazodone HCl Trazodone HCl 04-02 00:00: 00 Yes Na Navarro 1 tablet at bedtime as needed [facility] Trazodone HCl 50 MG Trazodone HCl 50 MG 04-02 00:00: 00 No 1{table t_at_be dtime_a s_neede d} Trazodone HCl 50 MG traZODone HCl 50 MG traZODone HCl 50 MG 04-02 00:00: 00 No 1{table t_at_be dtime_a s_neede d} traZODone HCl 50 MG Carvedilol Carvedilol 02-20 00:00: 00 Yes Na Navarro as directed [facility] Carvedilol 3.125 MG Carvedilol 3.125 MG 02-20 00:00: 00 No Carvedilol 3.125 MG Carvedilol 3.125 MG Carvedilol 3.125 MG 02-20 00:00: 00 No Carvedilol 3.125 MG TYLENOL-COD EINE #3 300-30 mg tablet 06-02 00:00: 00 Yes 2{tbl} Take 2 tablets by mouth every 4 (four) hours as needed for Pain (scale 1-3). [facility] Omeprazole Omeprazole Yes Na Navarro 1 capsule [facility] Promethazin e HCl Promethazin e HCl Yes Na Navarro 1 tablet as needed [facility] Myrbetriq Myrbetriq Yes Na Navarro 1 tablet [facility] Cozaar Cozaar Yes Na Navarro 1 tablet [facility] Prilosec OTC Prilosec OTC Yes Na Navarro 1 tablet 30 minutes before morning meal [facility] Myrbetriq 50 MG Myrbetriq 50 MG No [...] No 1{table t} QD Cozaar 50 MG PriLOSEC OTC 20 MG PriLOSEC OTC 20 MG No QD PriLOSEC OTC 20 MG Omeprazole 40 MG Omeprazole 40 MG No 1{capsu le} QD Omeprazole 40 MG valACYclovi r HCl 1 GM valACYclovi r HCl 1 GM No 1{table t} BID valACYclov ir HCl 1 GM Vital Signs Vital Name Observation Time Observation Value Comments S ource Systolic blood pressure 2024-01-10 13:35:00 149 mm[Hg] [facility] Diastolic blood pressure 2024-01-10 13:35:00 83 mm[Hg] [facility] Heart rate 2024-01-10 13:35:00 69 /min [facility] Body temperature 2024-01-10 13:35:00 37.33 Jamia [facility] Respiratory rate 2024-01-10 13:35:00 19 /min [facility] Oxygen saturation in Arterial blood by Pulse oximetry 2024-01-10 13:35:00 96 /min [facility] Body height 2024-01-07 00:22:00 165.1 cm [facility] Body weight 2024-01-07 00:22:00 74.844 kg [facility] BMI 2024-01-07 00:22:00 27.46 kg/m2 [facility] Systolic blood pressure 2024-01-09 13:45:00 125 mm[Hg] [facility] Diastolic blood pressure 2024-01-09 13:45:00 61 mm[Hg] [facility] Heart rate 2024-01-09 13:45:00 56 /min [facility] Body temperature 2024-01-09 13:45:00 36.39 Jamia [facility] Respiratory rate 2024-01-09 13:45:00 16 /min [facility] Oxygen saturation in Arterial blood by Pulse oximetry 2024-01-09 13:45:00 94 /min [facility] Body height 2024-01-07 00:22:00 165.1 cm [facility] Body weight 2024-01-07 00:22:00 74.844 kg [facility] BMI 2024-01-07 00:22:00 27.46 kg/m2 [facility] Systolic blood pressure 2024-01-09 13:45:00 125 mm[Hg] [facility] Diastolic blood pressure 2024-01-09 13:45:00 61 mm[Hg] [facility] Heart rate 2024-01-09 13:45:00 56 /min [facility] Body temperature 2024-01-09 13:45:00 36.39 Jamia [facility] Respiratory rate 2024-01-09 13:45:00 16 /min [facility] Oxygen saturation in Arterial blood by Pulse oximetry 2024-01-09 13:45:00 94 /min [facility] Body height 2024-01-07 00:22:00 165.1 cm [facility] Body weight 2024-01-07 00:22:00 74.844 kg [facility] BMI 2024-01-07 00:22:00 27.46 kg/m2 [facility] Procedures Procedure Date / Time Performed Performing Clinician Source POCT GLUCOSE (AUTOMATED) 2024-01-10 15:35:00 Clay Hodges [facility] POCT GLUCOSE (AUTOMATED) 2024-01-10 15:35:00 Clay Hodges [facility] POCT GLUCOSE (AUTOMATED) 2024-01-10 03:08:00 Clay Hodges [facility] POCT GLUCOSE (AUTOMATED) 2024-01-10 03:08:00 Clay Hodges [facility] MAGNETIC RESONANCE IMAGING UNDER ANESTHESIA 2024-01-10 01:45:00 Anesthesiology [facility] MAGNETIC RESONANCE IMAGING UNDER ANESTHESIA 2024-01-10 01:45:00 Anesthesiology [facility] POCT GLUCOSE (AUTOMATED) 2024-01-09 23:34:00 Clay Hodges [facility] POCT GLUCOSE (AUTOMATED) 2024-01-09 23:34:[address] [facility] MR BRAIN W CONTRAST 2024-01-09 20:34:00 Luther [facility] MR CERVICAL SPINE W WO CONTRAST 2024-01-09 20:34:00 Eduar [facility] MR THORACIC SPINE W WO CONTRAST 2024-01-09 20:34:00 Eduar, [facility] MR ORBIT W WO CONTRAST 2024-01-09 20:34:00 Luther [facility] MR BRAIN W CONTRAST 2024-01-09 20:34:00 Luther [facility] MR CERVICAL SPINE W WO CONTRAST 2024-01-09 20:34:00 Eduar [facility] MR THORACIC SPINE W WO CONTRAST 2024-01-09 20:34:00 Eduar [facility] MR ORBIT W WO CONTRAST 2024-01-09 20:34:00 Luther [facility] INTUBATION 2024-01-09 18:07:00 Josiah Coker [facility] POCT GLUCOSE (AUTOMATED) 2024-01-09 14:03:00 Clay Hodges [facility] POCT GLUCOSE (AUTOMATED) 2024-01-09 14:03:[address] [facility] POCT GLUCOSE (AUTOMATED) 2024-01-09 14:03:[address] [facility] ANTI-NUCLEAR ANTIBODY SCREEN 2024-01-09 07:00:00 Eduar [facility] ANTI-SSB(LA) 2024-01-09 07:00:00 Eduar [facility] ANTI-NUCLEAR ANTIBODY-PATHOLOGIST INTERPRETATION 2024-01-09 07:00:00 Eduar [facility] ANTI-NUCLEAR ANTIBODY SCREEN 2024-01-09 07:00:00 Eduar [facility] ANTI-SSB(LA) 2024-01-09 07:00:00 Eduar [facility] ANTI-NUCLEAR ANTIBODY-PATHOLOGIST INTERPRETATION 2024-01-09 07:00:00 Eduar [facility] ANTI-SSB(LA) 2024-01-09 07:00:00 Eduar [facility] POCT GLUCOSE (AUTOMATED) 2024-01-09 05:42:[address] [facility] POCT GLUCOSE (AUTOMATED) 2024-01-09 05:42:[address] [facility] POCT GLUCOSE (AUTOMATED) 2024-01-09 05:42:00 Clay Hodges [facility] VITAMIN D, 25-[place] 2024-01-09 00:33:00 Tawny Luther [facility] VITAMIN D, 25-[place] 2024-01-09 00:33:00 Tawny Luther [facility] VITAMIN D, 25-[place] 2024-01-09 00:33:00 Tawny Luther [facility] MODIFIED BARIUM SWALLOW 2024-01-08 15:15:00 Tanvi [facility] MODIFIED BARIUM SWALLOW 2024-01-08 15:15:00 Tanvi [facility] MODIFIED BARIUM SWALLOW 2024-01-08 15:15:00 Tanvi [facility] MR ORBIT WO CONTRAST 2024-01-07 22:30:00 Gail Witt [facility] MR ORBIT WO CONTRAST 2024-01-07 22:30:00 Gail Witt [facility] MR ORBIT WO CONTRAST 2024-01-07 22:30:00 Gail Witt [facility] MR BRAIN WO CONTRAST 2024-01-07 22:02:00 Gail Witt [facility] MR BRAIN WO CONTRAST 2024-01-07 22:02:00 Eduar Gail phu [facility] MR BRAIN WO CONTRAST 2024-01-07 22:02:00 Gail Witt [facility] MAGNESIUM 2024-01-07 09:24:00 Eduar [facility] C-REACTIVE PROTEIN 2024-01-07 09:24:00 Mari Witt [facility] BASIC METABOLIC PANEL (NA, K, CL, CO2, GLUCOSE, BUN, CREATININE, CA) 2024-01-07 09:24:00 Eduar [facility] CBC WITH DIFF 2024-01-07 09:24:00 Eduar [facility] MAGNESIUM 2024-01-07 09:24:00 Eduar [facility] C-REACTIVE PROTEIN 2024-01-07 09:24:00 Mari Witt [facility] BASIC METABOLIC PANEL (NA, K, CL, CO2, GLUCOSE, BUN, CREATININE, CA) 2024-01-07 09:24:00 Eduar [facility] CBC WITH DIFF 2024-01-07 09:24:00 Eduar [facility] C-REACTIVE PROTEIN 2024-01-07 09:24:00 Mari Witt [facility] CBC WITH DIFF 2024-01-07 09:24:00 Eduar [facility] BASIC METABOLIC PANEL (NA, K, CL, CO2, GLUCOSE, BUN, CREATININE, CA) 2024-01-07 09:24:00 Eduar [facility] MAGNESIUM 2024-01-07 09:24:00 Eduar [facility] COPPER, SERUM 2024-01-07 02:29:00 Eduar [facility] ZINC, SERUM 2024-01-07 02:29:00 Eduar [facility] VITAMIN B6, PLASMA 2024-01-07 02:29:00 Mari Witt [facility] SYPHILIS IGG/IGM 2024-01-07 02:29:00 Eduar [facility] COPPER, SERUM 2024-01-07 02:29:00 Eduar [facility] ZINC, SERUM 2024-01-07 02:29:00 Eduar, [facility] VITAMIN B6, PLASMA 2024-01-07 02:29:00 Mari Witt [facility] SYPHILIS IGG/IGM 2024-01-07 02:29:00 Eduar, [facility] COPPER, SERUM 2024-01-07 02:29:00 Eduar, [facility] ZINC, SERUM 2024-01-07 02:29:00 Eduar, [facility] SYPHILIS IGG/IGM 2024-01-07 02:29:00 Eduar, [facility] VITAMIN D, 25-[place] 2024-01-07 02:28:00 Eduar, [facility] ANCA SCREEN 2024-01-07 02:28:00 Eduar, [facility] VITAMIN D, 25-[place] 2024-01-07 02:28:00 Eduar, [facility] ANCA SCREEN 2024-01-07 02:28:00 Eduar [facility] VITAMIN D, 25-[place] 2024-01-07 02:28:00 Eduar, [facility] ANCA SCREEN 2024-01-07 02:28:00 Eduar, [facility] ANGIOTENSIN CONVERTING ENZYME 2024-01-07 02:27:00 Eduar, [facility] VITAMIN E, SERUM OR PLASMA 2024-01-07 02:27:00 Eduar [facility] C4 COMPLEMENT 2024-01-07 02:27:00 Eduar [facility] VITAMIN B1 (THIAMINE), WHOLE BLOOD 2024-01-07 02:27:00 Eduar, [facility] ANGIOTENSIN CONVERTING ENZYME 2024-01-07 02:27:00 Eduar, [facility] VITAMIN E, SERUM OR PLASMA 2024-01-07 02:27:00 Eduar, [facility] C4 COMPLEMENT 2024-01-07 02:27:00 Eduar, [facility] VITAMIN B1 (THIAMINE), WHOLE BLOOD 2024-01-07 02:27:00 Eduar, [facility] C4 COMPLEMENT 2024-01-07 02:27:00 Braeden Witt [facility] ANGIOTENSIN CONVERTING ENZYME 2024-01-07 02:27:00 Braeden Witt [facility] XR CHEST 1 VW 2024-01-06 22:44:50 Braeden Witt [facility] XR CHEST 1 VW 2024-01-06 22:44:50 Braedne Witt [facility] XR CHEST 1 VW 2024-01-06 22:44:50 Braeden Witt [facility] URINALYSIS 2024-01-06 22:04:00 Jessie Grimaldo [facility] EXTRA TUBE URINE 2024-01-06 22:04:00 Jessie Grimaldo [facility] EXTRA TUBE URINE CULTURE 2024-01-06 22:04:00 Re, Aime Gallegos [facility] URINALYSIS 2024-01-06 22:04:00 Jessie Grimaldo [facility] EXTRA TUBE URINE 2024-01-06 22:04:00 Jessie Grimaldo [facility] EXTRA TUBE URINE CULTURE 2024-01-06 22:04:00 Re, Aime Gallegos [facility] URINALYSIS 2024-01-06 22:04:00 Jessie Grimaldo [facility] EXTRA TUBE URINE CULTURE 2024-01-06 22:04:00 Aime Grimaldo [facility] EXTRA TUBE URINE 2024-01-06 22:04:00 Jessie Grimaldo [facility] PHOSPHORUS 2024-01-06 19:40:00 Eduar [facility] MAGNESIUM 2024-01-06 19:40:00 Jessie Grimaldo [facility] VITAMIN B12, LEVEL 2024-01-06 19:40:00 Mari Witt [facility] FOLATE 2024-01-06 19:40:00 Eduar [facility] TROPONIN I 2024-01-06 19:40:00 Eduar [facility] THYROID STIMULATING HORMONE 2024-01-06 19:40:00 Eduar [facility] COMP. METABOLIC PANEL ([id number]) 2024-01-06 19:40:00 Jessie Grimaldo [facility] SEDIMENTATION RATE 2024-01-06 19:40:00 Mari Witt [facility] CBC WITH DIFF 2024-01-06 19:40:00 Jessie Grimaldo [facility] GLYCOSYLATED HEMOGLOBIN (A1C) 2024-01-06 19:40:00 Eduar [facility] PROTHROMBIN TIME / INR 2024-01-06 19:40:00 Emery Witt [facility] ACTIVATED PARTIAL THRMPLAS HUGO 2024-01-06 19:40:00 Eduar [facility] HOMOCYSTEINE 2024-01-06 19:40:00 Eduar [facility] EXTRA TUBE LT. BLUE 2024-01-06 19:40:00 Jessie Grimaldo [facility] EXTRA TUBE DK. GREEN 2024-01-06 19:40:00 Miki Grimaldo [facility] HIV 1/2 AG-AB WITH REFLEX 2024-01-06 19:40:00 Eduar [facility] PHOSPHORUS 2024-01-06 19:40:00 Eduar [facility] MAGNESIUM 2024-01-06 19:40:00 Jessie Grimaldo [facility] VITAMIN B12, LEVEL 2024-01-06 19:40:00 Mari Witt [facility] FOLATE 2024-01-06 19:40:00 Eduar [facility] TROPONIN I 2024-01-06 19:40:00 Eduar [facility] THYROID STIMULATING HORMONE 2024-01-06 19:40:00 Eduar [facility] COMP. METABOLIC PANEL ([id number]) 2024-01-06 19:40:00 Jessie Grimaldo [facility] SEDIMENTATION RATE 2024-01-06 19:40:00 Mari Witt [facility] CBC WITH DIFF 2024-01-06 19:40:00 Jessie Grimaldo [facility] GLYCOSYLATED HEMOGLOBIN (A1C) 2024-01-06 19:40:00 Eduar [facility] PROTHROMBIN TIME / INR 2024-01-06 19:40:00 Emery Witt [facility] ACTIVATED PARTIAL THRMPLAS HUGO 2024-01-06 19:40:00 Eduar [facility] HOMOCYSTEINE 2024-01-06 19:40:00 Eduar [facility] EXTRA TUBE LT. BLUE 2024-01-06 19:40:00 Jessie Grimaldo [facility] EXTRA TUBE DK. GREEN 2024-01-06 19:40:00 Miki Grimaldo [facility] HIV 1/2 AG-AB WITH REFLEX 2024-01-06 19:40:00 Eduar [facility] CBC WITH DIFF 2024-01-06 19:40:00 Jessie Grimaldo [facility] COMP. METABOLIC PANEL ([id number]) 2024-01-06 19:40:00 Jessie Grimaldo [facility] MAGNESIUM 2024-01-06 19:40:00 Jessie Grimaldo [facility] VITAMIN B12, LEVEL 2024-01-06 19:40:00 Mari Witt [facility] THYROID STIMULATING HORMONE 2024-01-06 19:40:00 Eduar [facility] FOLATE 2024-01-06 19:40:00 Eduar [facility] GLYCOSYLATED HEMOGLOBIN (A1C) 2024-01-06 19:40:00 Eduar [facility] HIV 1/2 AG-AB WITH REFLEX 2024-01-06 19:40:00 Eduar [facility] SEDIMENTATION RATE 2024-01-06 19:40:00 Mari Witt [facility] PROTHROMBIN TIME / INR 2024-01-06 19:40:00 Emery Witt [facility] ACTIVATED PARTIAL THRMPLAS HUGO 2024-01-06 19:40:00 Eduar [facility] PHOSPHORUS 2024-01-06 19:40:00 Eduar [facility] TROPONIN I 2024-01-06 19:40:00 Eduar [facility] HOMOCYSTEINE 2024-01-06 19:40:00 Eduar [facility] EXTRA TUBE LT. BLUE 2024-01-06 19:40:00 Jessie Grimaldo [facility] EXTRA TUBE DK. GREEN 2024-01-06 19:40:00 Miki Grimaldo [facility] CONSENT/REFUSAL FOR DIAGNOSIS AND TREATMENT 2024-01-06 18:55:12 Doctor Unassigned, [place] [facility] CONSENT/REFUSAL FOR DIAGNOSIS AND TREATMENT 2024-01-06 18:55:12 Doctor Unassigned, [place] [facility] CONSENT/REFUSAL FOR DIAGNOSIS AND TREATMENT 2024-01-06 18:55:12 Doctor Unassigned, [place] [facility] Encounters Start Date/Time End Date/Time Encounter Type Admission Type Attending [facility] Facility Care Department Encounter ID Source 2021-12-27 12:01:32 Outpatient Hien Navarro [facility] [id number] [facility] 2021-12-27 11:47:56 Outpatient Hien Navarro [facility] [id number] [facility] 2024-05-11 00:00:00 2024-05-11 13:00:32 Patient Outreach Mishel Gonsalez 1.2.840.114 350.1.13.10 4.2.7.2.686 [id number] 403 [id number] [facility] 2024-05-11 00:00:00 2024-05-11 11:06:12 Patient Outreach Giovana Ennis 1.2.840.114 350.1.13.10 4.2.7.2.686 [id number] [facility] 2024-05-08 00:00:00 2024-05-08 15:23:55 Patient Outreach Mishel Gonsalez 1.2.840.114 350.1.13.10 4.2.7.2.686 [id number] [facility] 2024-04-28 00:00:00 2024-04-28 11:17:58 Patient Outreach Giovana Ennis 1.2.840.114 350.1.13.10 4.2.7.2.686 [id number] 403 [id number] [facility] 2024-04-03 00:00:00 2024-04-03 00:00:00 Patient Outreach Mishel Gonsalez 1.2.840.114 350.1.13.10 4.2.7.2.686 [id number] 403 [id number] [facility] 2024-04-01 00:00:00 2024-04-01 00:00:00 Patient Outreach Mishel Gonsalez 1.2.840.114 350.1.13.10 4.2.7.2.686 [id number] 403 [id number] [facility] 2024-03-24 00:00:00 2024-03-24 00:00:00 Patient Outreach Mishel Gonsalez 1.2.840.114 350.1.13.10 4.2.7.2.686 [id number] 403 [id number] [facility] 2024-03-12 00:00:00 2024-03-12 00:00:00 Patient Outreach Mishel Gonsalez 1.2.840.114 350.1.13.10 4.2.7.2.686 [id number] 403 [id number] [facility] 2024-03-06 00:00:00 2024-03-06 00:00:00 Patient Outreach Mishel Gonsalez 1.2.840.114 350.1.13.10 4.2.7.2.686 [id number] [facility] 2024-03-05 00:00:00 2024-03-05 00:00:00 Patient Outreach Mishel Gonsalez 1.2.840.114 350.1.13.10 4.2.7.2.686 [id number] 403 [id number] [facility] 2024-03-04 00:00:00 2024-03-04 00:00:00 Patient Outreach Mishel Gonsalez 1.2.840.114 350.1.13.10 4.2.7.2.686 [id number] 403 [id number] [facility] 2024-03-02 00:00:00 2024-03-02 00:00:00 Patient Outreach Mishel Gonsalez 1.2.840.114 350.1.13.10 4.2.7.2.686 [id number] [facility] 2024-02-18 00:00:00 2024-02-18 00:00:00 Patient Outreach Giovana Ennis 1.2.840.114 350.1.13.10 4.2.7.2.686 [id number] [facility] 2024-02-17 00:00:00 2024-02-17 00:00:00 Patient Outreach Giovana Ennis 1.2.840.114 350.1.13.10 4.2.7.2.686 [id number] [facility] 2024-02-14 00:00:00 2024-02-14 00:00:00 Patient Outreach Mishel Gonsalez 1.2.840.114 350.1.13.10 4.2.7.2.686 [id number] [facility] 2024-02-14 00:00:00 2024-02-14 00:00:00 Patient Outreach Mishel Gonsalez 1.2.840.114 350.1.13.10 4.2.7.2.686 [id number] 403 [id number] [facility] 2024-02-13 00:00:00 2024-02-13 00:00:00 Patient Outreach Mishel Gonsalez 1.2.840.114 350.1.13.10 4.2.7.2.686 [id number] [facility] 2024-02-10 00:00:00 2024-02-10 00:00:00 Patient Outreach Mishel Gonsalez 1.2.840.114 350.1.13.10 4.2.7.2.686 [id number] [facility] 2024-02-10 00:00:00 2024-02-10 00:00:00 Patient Outreach Mishel Gonsalez 1.2.840.114 350.1.13.10 4.2.7.2.686 [id number] 403 [id number] [facility] 2024-02-07 14:30:00 2024-02-07 15:15:00 Patient Outreach Mishel Gonsalez 1.2.840.114 350.1.13.10 4.2.7.2.686 [id number] 403 [id number] [facility] 2024-02-05 00:00:00 2024-02-05 00:00:00 Patient Outreach Mishel Gonsalez 1.2.840.114 350.1.13.10 4.2.7.2.686 [id number] 403 [id number] [facility] 2024-02-04 09:30:00 2024-02-04 10:30:00 Patient Outreach Giovana Ennis 1.2.840.114 350.1.13.10 4.2.7.2.686 [id number] 403 [id number] [facility] 2024-02-03 00:00:00 2024-02-03 00:00:00 Patient Outreach Giovana Ennis 1.2.840.114 350.1.13.10 4.2.7.2.686 [id number] 403 [id number] [facility] 2024-01-28 00:00:00 2024-01-28 00:00:00 Patient Outreach Mishel GonsalezAbigail WAGNERMECHELLE 1.2.840.114 350.1.13.10 4.2.7.2.686 [id number] 403 [id number] [facility] 2024-01-22 00:00:00 2024-01-22 00:00:00 Patient Outreach Giovana Ennis 1.2.840.114 350.1.13.10 4.2.7.2.686 [id number] 403 [id number] [facility] 2024-01-17 00:00:00 2024-01-17 00:00:00 Transition of Care Sowmya MachucaDarlin CHANCE PLAMECHELLE 1.2840.114 350.1.13.10 4.2.7.2.686 [id number] 403 [id number] [facility] 2024-01-06 13:09:00 2024-01-10 14:28:00 Inpatient X [facility] [id number] [facility] 2024-01-06 13:09:00 2024-01-10 14:28:00 Hospital Encounter Jessie Grimaldo [facility] 1.2840.114 350.1.13.10 4.2.7.2.686 [id number] [facility] 2024-01-09 11:45:00 2024-01-09 13:45:00 Surgery [facility] 1.2840.114 350.1.13.10 4.2.7.2.686 [id number] [facility] 2024-01-09 12:03:00 2024-01-09 12:03:00 Anesthesia Event Jose Sapp Ravi 1.2.840.1 [id number] 3.104.2.7 .3.593425 .8 [id number] [facility] 2024-01-08 10:17:00 2024-01-08 10:17:00 Anesthesia Event Pramod Marcial 1.2.840.1 [id number] 3.104.2.7 .[id number] .[id number] [facility] 2024-01-08 00:00:00 2024-01-08 00:00:00 [facility], Care Transition 1.2.840.1 [id number] 3.104.2.7 .3.262410 .8 [id number] [facility] 2024-01-07 00:00:00 2024-01-07 00:00:00 (TEL) STLMLC STLC [id number] [facility] 2024-01-06 00:00:00 2024-01-06 00:00:00 Travel 1.2.840.1 [id number] 3.104.2.7 .3.109082 .8 1.2.840.114 350.1.13.10 4.2.7.3.698 [id number] [facility] 2020-09-30 00:00:00 2020-09-30 00:00:00 OL DIG E/M SVC 5-10 MIN STLMLC STLMLC [id number] [facility] 2020-09-30 00:00:00 2020-09-30 00:00:00 (TEL) STLC STLMLC [id number] [facility] 2020-07-06 09:20:00 2020-07-06 09:20:00 Outpatient [facility] [id number] [facility] 2019-10-15 11:00:00 2019-10-15 11:00:00 Outpatient Alphonse [facility] [id number] [facility] 2018-03-12 11:22:00 2018-03-12 11:22:00 Outpatient [facility] [id number] [facility] 2018-02-20 08:15:00 2018-02-20 08:15:00 Outpatient [facility] [id number] [facility] Results Test Description Test Time Test Comments Results Result Co mments Source [facility] GLUCOSE (AUTOMATED)2024-01-10 15:36:36* Test Item Value Reference Range Interpretation Comme nts POCT GLU (test code = 7869867935) 131 mg/dL 70-110 H Lab Interpretation (test cod e = [id number]) Abnormal [facility] GLUCOSE (AUTOMATED)2024-01-10 03:10:30* Test Item Value Reference Range Interpretation Comme nts POCT GLU (test code = 2814761213) 123 mg/dL 70-110 H Lab Interpretation (test cod e = [id number]) Abnormal [facility] GLUCOSE (AUTOMATED)2024-01-10 03:10:30* Test Item Value Reference Range Interpretation Comme nts POCT GLU (test code = 5983180808) 123 mg/dL 70-110 H Lab Interpretation (test cod e = [id number]) Abnormal [facility] GLUCOSE (AUTOMATED)2024-01-09 23:37:33* Test Item Value Reference Range Interpretation Comme nts POCT GLU (test code = [id number]) 126 mg/dL 70-110 H Lab Interpretation (test cod e = [id number]) Abnormal [facility] GLUCOSE (AUTOMATED)2024-01-09 23:37:33* Test Item Value Reference Range Interpretation Comme nts POCT GLU (test code = [id number]) 126 mg/dL 70-110 H Lab Interpretation (test cod e = [id number]) [facility] [id number] 21:08:15MR CERVICAL SPINE W WO CONTRAST, MR BRAIN W CONTRAST, MR ORBIT W WO CONTRAST, MR THORACIC SPINE W WO CONTRAST HISTORY: Female 58 years Demyelinating disease COMPARISON: MRI of brain and orbits dated 01/07/2024 TECHNIQUE: Multiplanar multi weighted imaging of the orbits, cervical andthoracic spine were obtained before and following the administration of 15mL IV MultiHance. Dedicated postcontrast sequences of the brain were alsoobtained as and adjunct study so that Noncon brain previously performed. FINDINGS: MRI brain and orbits: The large, flocculent periventricular hyperintense FLAIR signal abn ormalityabout the lateral ventricular bodies are demonstrated on the prior MRI ofbrain demonstratesmultifocal areas of enhancement. Additional scatteredperiventricular lesions around the right temporal and bilateral occipitalhorns are also enhancing as well as several of the subcortical, brain stemand callosal lesions. 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 Marked enhancement and thickening of the right prechiasmaticand canalicular components of the optic nerve. Aside from cataract surgeries, the globes and remaining intraorbitalstructures are otherwise unremarkable. MRI cervical spine: The vertebral bodies are normal in height and in normal alignment. Thecervical cord is normal in caliber and demonstrates numerous scattered fociof hyperintense T2/STIR signal, most pronounced at the levels of C2 and C4.The levels of C2 and C4 also demonstrate enhancement as well as a lesion inthe right lateral aspect of the cord at C6. The background marrow signal is unremarkable. The intervertebral discheights are preserved. No significant degenerative changes. No significant spinal canal stenosisor neural foraminal narrowing is present at any level. MRI thoracic spine: The vertebral bodies are normal in height and in normal alignment. Thecervical cord demonstrates normal caliber with T2/STIR hyperintense lesionsin the central cord at the level of T7-T8. The background marrow signal is unremarkable. No significant degenerativechanges are present. No spinal canal stenosis or neural foraminal narrowingis present at any level.[facility] [id number] 21:08:15MR CERVICAL SPINE W WO CONTRAST, MR BRAIN W CONTRAST, MR ORBIT W WO CONTRAST, MR THORACIC SPINE W WO CONTRAST HISTORY: Female 58 years Demyelinating disease COMPARISON: MRI of brain and orbits dated 01/07/2024 TECHNIQUE: Multiplanar multi weighted imaging of the orbits, cervical andthoracic spine were obtained before and following the administration of 15mL IV MultiHance. Dedicated postcontrast sequences of the brain were alsoobtained as and adjunct study so that Noncon brain previously performed. FINDINGS: MRI brain and orbits: The large, flocculent periventricular hyperintense FLAIR signal abnormalityabout the lateral ventricular bodies are demonstrated on the prior MRI ofbrain demonstratesmultifocal areas of enhancement. Additional scatteredperiventricular lesions around the right temporal and bilateral occipitalhorns are also enhancing as well as several of the subcortical, brain stemand callosal lesions. 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 Marked enhancement and thickening of the right prechiasmaticand canalicular components of the optic nerve. Aside from cataract surgeries, the globes and remaining intraorbitalstructures are otherwise unremarkable. MRI cervical spine: The vertebral bodies are normal in height and in normal alignment. Thecervical cord is normal in caliber and demonstrates numerous scattered fociof hyperintense T2/STIR signal, most pronounced at the levels of C2 and C4.The levels of C2 and C4 also demonstrate enhancement as well as a lesion inthe right lateral aspect of the cord at C6. The background marrow signal is unremarkable. The intervertebral discheights are preserved. No significant degenerative changes. No significant spinal canal stenosisor neural foraminal narrowing is present at any level. MRI thoracic spine: The vertebral bodies are normal in height and in normal alignment. Thecervical cord demonstrates normal caliber with T2/STIR hyperintense lesionsin the central cord at the level of T7-T8. The background marrow signal is unremarkable. No significant degenerativechanges are present. No spinal canal stenosis or neural foraminal narrowingis present at any level.[facility] WO [id number] 21:08:15MR CERVICAL SPINE W WO CONTRAST, MR BRAIN W CONTRAST, MR ORBIT W WO CONTRAST, MR THORACIC SPINE W WO CONTRAST HISTORY: Female 58 years Demyelinating disease COMPARISON: MRI of brain and orbits dated 01/07/2024 TECHNIQUE: Multiplanar multi weighted imaging of the orbits, cervical andthoracic spine were obtained before and following the administration of 15mL IV MultiHance. Dedicated postcontrast sequences of the brain were alsoobtained as and adjunct study so that Noncon brain previously performed. FINDINGS: MRI brain and orbits: The large, flocculent periventricular hyperintense FLAIR signal abnormalityabout the lateral ventricular bodies are demonstrated on the prior MRI ofbrain demonstratesmultifocal areas of enhancement. Additional scatteredperiventricular lesions around the right temporal and bilateral occipitalhorns are also enhancing as well as several of the subcortical, brain stemand callosal lesions. 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 Marked enhancement and thickening of the right prechiasmaticand canalicular components of the optic nerve. Aside from cataract surgeries, the globes and remaining intraorbitalstructures are otherwise unremarkable. MRI cervical spine: The vertebral bodies are normal in height and in normal alignment. Thecervical cord is normal in caliber and demonstrates numerous scattered fociof hyperintense T2/STIR signal, most pronounced at the levels of C2 and C4.The levels of C2 and C4 also demonstrate enhancement as well as a lesion inthe right lateral aspect of the cord at C6. The background marrow signal is unremarkable. The intervertebral discheights are preserved. No significant degenerative changes. No significant spinal canal stenosisor neural foraminal narrowing is present at any level. MRI thoracic spine: The vertebral bodies are normal in height and in normal alignment. Thecervical cord demonstrates normal caliber with T2/STIR hyperintense lesionsin the central cord at the level of T7-T8. The background marrow signal is unremarkable. No significant degenerativechanges are present. No spinal canal stenosis or neural foraminal narrowingis present at any level.[facility] W [id number] 21:08:15MR CERVICAL SPINE W WO CONTRAST, MR BRAIN W CONTRAST, MR ORBIT W WO CONTRAST, MR THORACIC SPINE W WO CONTRAST HISTORY: Female 58 years Demyelinating disease COMPARISON: MRI of brain and orbits dated 01/07/2024 TECHNIQUE: Multiplanar multi weighted imaging of the orbits, cervical andthoracic spine were obtained before and following the administration of 15mL IV MultiHance. Dedicated postcontrast sequences of the brain were alsoobtained as and adjunct study so that Noncon brain previously performed. FINDINGS: MRI brain and orbits: The large, flocculent periventricular hyperintense FLAIR signal abnormalityabout the lateral ventricular bodies are demonstrated on the prior MRI ofbrain demonstratesmultifocal areas of enhancement. Additional scatteredperiventricular lesions around the right tempor al and bilateral occipitalhorns are also enhancing as well as several of the subcortical, brain stemand callosal lesions. 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 Marked enhancement and thickening of the right prechiasmaticand canalicular components of the optic nerve. Aside from cataract surgeries, the globes and remaining intraorbitalstructures are otherwise unremarkable. MRI cervical spine: The vertebral bodies are normal in height and in normal alignment. Thecervical cord is normal in caliber and demonstrates numerous scattered fociof hyperintense T2/STIR signal, most pronounced at the levels of C2 and C4.The levels of C2 and C4 also demonstrate enhancement as well as a lesion inthe right lateral aspect of the cord at C6. The background marrow signal is unremarkable. The intervertebral discheights are preserved. No significant degenerative changes. No significant spinal canal stenosisor neural foraminal narrowing is present at any level. MRI thoracic spine: The vertebral bodies are normal in height and in normal alignment. Thecervical cord demonstrates normal caliber with T2/STIR hyperintense lesionsin the central cord at the level of T7-T8. The background marrow signal is unremarkable. No significant degenerativechanges are present. No spinal canal stenosis or neural foraminal narrowingis present at any level. [facility] WO [id number] 21:08:15MR CERVICAL SPINE W WO CONTRAST, MR BRAIN W CONTRAST, MR ORBIT W WO CONTRAST, MR THORACIC SPINE W WO CONTRAST HISTORY: Female 58 years Demyelinating disease COMPARISON: MRI of brain and orbits dated 01/07/2024 TECHNIQUE: Multiplanar multi weighted imaging of the orbits, cervical andthoracic spine were obtained before and following the administration of 15mL IV MultiHance. Dedicated postcontrast sequences of the brain were alsoobtained as and adjunct study so that Noncon brain previously performed. FINDINGS: MRI brain and orbits: The large, flocculent periventricular hyperintense FLAIR signal abn ormalityabout the lateral ventricular bodies are demonstrated on the prior MRI ofbrain demonstratesmultifocal areas of enhancement. Additional scatteredperiventricular lesions around the right temporal and bilateral occipitalhorns are also enhancing as well as several of the subcortical, brain stemand callosal lesions. 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 Marked enhancement and thickening of the right prechiasmaticand canalicular components of the optic nerve. Aside from cataract surgeries, the globes and remaining intraorbitalstructures are otherwise unremarkable. MRI cervical spine: The vertebral bodies are normal in height and in normal alignment. Thecervical cord is normal in caliber and demonstrates numerous scattered fociof hyperintense T2/STIR signal, most pronounced at the levels of C2 and C4.The levels of C2 and C4 also demonstrate enhancement as well as a lesion inthe right lateral aspect of the cord at C6. The background marrow signal is unremarkable. The intervertebral discheights are preserved. No significant degenerative changes. No significant spinal canal stenosisor neural foraminal narrowing is present at any level. MRI thoracic spine: The vertebral bodies are normal in height and in normal alignment. Thecervical cord demonstrates normal caliber with T2/STIR hyperintense lesionsin the central cord at the level of T7-T8. The background marrow signal is unremarkable. No significant degenerativechanges are present. No spinal canal stenosis or neural foraminal narrowingis present at any level.[facility] W WO [id number] 21:08:15MR CERVICAL SPINE W WO CONTRAST, MR BRAIN W CONTRAST, MR ORBIT W WO CONTRAST, MR THORACIC SPINE W WO CONTRAST HISTORY: Female 58 years Demyelinating disease COMPARISON: MRI of brain and orbits dated 01/07/2024 TECHNIQUE: Multiplanar multi weighted imaging of the orbits, cervical andthoracic spine were obtained before and following the administration of 15mL IV MultiHance. Dedicated postcontrast sequences of the brain were alsoobtained as and adjunct study so that Noncon brain previously performed. FINDINGS: MRI brain and orbits: The large, flocculent periventricular hyperintense FLAIR signal abnormalityabout the lateral ventricular bodies are demonstrated on the prior MRI ofbrain demonstratesmultifocal areas of enhancement. Additional scatteredperiventricular lesions around the right temporal and bilateral occipitalhorns are also enhancing as well as several of the subcortical, brain stemand callosal lesions. 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 Marked enhancement and thickening of the right prechiasmaticand canalicular components of the optic nerve. Aside from cataract surgeries, the globes and remaining intraorbitalstructures are otherwise unremarkable. MRI cervical spine: The vertebral bodies are normal in height and in normal alignment. Thecervical cord is normal in caliber and demonstrates numerous scattered fociof hyperintense T2/STIR signal, most pronounced at the levels of C2 and C4.The levels of C2 and C4 also demonstrate enhancement as well as a lesion inthe right lateral aspect of the cord at C6. The background marrow signal is unremarkable. The intervertebral discheights are preserved. No significant degenerative changes. No significant spinal canal stenosisor neural foraminal narrowing is present at any level. MRI thoracic spine: The vertebral bodies are normal in height and in normal alignment. Thecervical cord demonstrates normal caliber with T2/STIR hyperintense lesionsin the central cord at the level of T7-T8. The background marrow signal is unremarkable. No significant degenerativechanges are present. No spinal canal stenosis or neural foraminal narrowingis present at any level.[facility]MR OR[facility] WO [id number] 21:08:15MR CERVICAL SPINE W WO CONTRAST, MR BRAIN W CONTRAST, MR ORBIT W WO CONTRAST, MR THORACIC SPINE W WO CONTRAST HISTORY: Female 58 years Demyelinating disease COMPARISON: MRI of brain and orbits dated 01/07/2024 TECHNIQUE: Multiplanar multi weighted imaging of the orbits, cervical andthoracic spine were obtained before and following the administration of 15mL IV MultiHance. Dedicated postcontrast sequences of the brain were alsoobtained as and adjunct study so that Noncon brain previously performed. FINDINGS: MRI brain and orbits: The large, flocculent periventricular hyperintense FLAIR signal abnormalityabout the lateral ventricular bodies are demonstrated on the prior MRI ofbrain demonstratesmultifocal areas of enhancement. Additional scatteredperiventricular lesions around the right temporal and bilateral occipitalhorns are also enhancing as well as several of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 tortuous, attenuated retinal vessels, pale optic nerve OS with grade 1 disc edema- Limited MRI brain/orbits, however showing extensive intracranial demyelinating plaques with a juxta cortical/cortical, periventricular/subcortical, and brainstem distribution. Partially visualized suspected cervical cord lesions. Findings mostconsistent with multiple sclerosis. Possible demyelination within the left intraorbital optic nerve. No definite abnormality within the right optic nerve- Given patient's history of multiple sclerosis and without treatment for a few years, this is likely an exacerbation of her MS. Do not see anything new or abnormal on eye exam that would explain her new symptoms so would need repeat imaging for a more definitive diagnosis. Otherwise, recommend ruling out NMO and MOG because they can present similarly and would require different treatmentRecommendations:- Continue with IV steroids per neurology- AQP4, MOG- Repeat MRI orbits w/wo contrast (fat suppression)- Outpatient neurology follow up for terminal gauger immunosuppression- Follow up with neuro-ophthalmology in 4-6 weeks for repeat dilated fundus exam, formal visual field testing, and OCT nerveThe management plan was discussed with the patient and the consulting team.This note is preliminary. The plan of care will not be final until the faculty attestation is included.Seen and discussed with Dr. Sloan, faculty.Ophthalmology will sign off. Please re-engage if patient develops new or worsening ocular symptoms.Jarrett Nolasco MDOphthalmology, PGY-2 AC - Anterior chamber; ACG - Angle closure glaucoma; ALT - Argon laser trabeculoplasty; AMD - Age-related macular degeneration; APD - Afferent pupillary defect; AT - Artificial tears; C/D - Cup-to-disc ratio; CE - Cataract extraction; CWS: Cotton wool spots; DBH: Dot-blot hemorrhages; DFE - Dilated fundus exam; FA - Fluorescein angiography; FB - Foreign body; FBS - Foreign body sensation; HVF - Dempsey Visual Carmona; KP - Keratic precipitates; IOL - Intraocular lens; IOP - Intraocular pressure; LP - Light perception; NLP - No light perception; NPDR - Non-proliferative diabetic retinopathy; NSC - Nuclear sclerotic cataract; NVM - Neovascular membrane; OAG - Open angle glaucoma; OD - right eye; OS - left eye; OU - Both eyes; PCIOL - Posterior chamber intraocular lens; PDR - Proliferative diabetic retinopathy; PEE - punctate epithelial erosions; PH - Pin hole; PHNI - Pin hole no improvement; PI - Peripheral iridectomy/iridotomy; PK - Penetrating keratoplasty; POAG - Primary open angle glaucoma; PPV - Pars plana vitrectomy; PRK - Photorefractive keratectomy; PRP - Shen retinal photocoagulation; PSC - Posterior subcapsular cataract; RAPD - Relative afferent papillary defect; RD - Retinal detachment; ROP - Retinopathy of prematurity; WESLEY - subconjunctival hemorrhage; TBT - Tear break-up time; TM - Trabecular meshwork; Trab - Trabeculectomy; TRD - Traction retinal detachment; amor - Ointment; VA - Visual acuity; VF - Visual field; VH - Vitreous hemorrhage; YAG - Uoinjve-vkvovqsa-tmbuum laser ssociated attestation - Susan Sloan MD - 01/08/2024 5:19 PM CST RETINA ATTENDING ATTESTATION:I personally examined the patient on 01/08/[address] Nolasco's findings, assessments, and plans, with my revisions and additional details as noted. I actively participated in the decision-making process.Susan Sloan MD 01/08/2024 5:19 [id number] [id number], [id number] 7441CtitiqEetfoJF1072-89-18A94:19:40C onsult noteTXT1.2.840.644756.1.13.104.2.7.2. [id number] for patient tohj29088-2Pkxusdx noteLNNARRATIVEFormatted C-CDA narrative bxnlRZE-GXONYXJCGFZPGGOH-TVBYCRQUJIXW [address] Gi[id number] CLPQXYKFTRAZWWSDBIEEX8897-44-86T92:19 :401.2.840.697215.1.72.3.15|1.2.840.1 [id number] 0 OPH-OPHTHALMOLOG [facility] 2024-01-07 13:37:00 2459-01-48X55:37:00Associated Order(s): CONSULT ADULT PHYSICAL THERAPY Patient agreeable to working with physical therapy. Patient met semi reclined in bed.Recommend nursing staff utilize rolling walker to safely assist patient with mobility out of the bed or chair.PHYSICAL THERAPY EVALUATIONConsult received, chart reviewed and evaluation complete this date. Patient is referred to PT for evaluation and treatment. Patient is a 58 year old female with a PMH of multiple sclerosis, hypertension and spinal stenosis who presents to hospital for Multiple sclerosis exacerbation [G35] .Discharge Recommendations:Therapy Needs and Potential:Patient would benefit from continued physical therapy services to address: decline in gait and/or balance decreased strength decreased endurancePatient demonstrates good potential to improve and meet therapy goals with further physical therapy services.Patient appears motivated to improve their functional mobility and return to their previous level of function.Patient exhibits limited activity tolerance.Challenges to Home Transition:increased risk of fallsEquipment recommendations:no device and Patient has or access to necessary equipmentCurrent Functional Status and/or Treatment:AM-PAC 6 Clicks (Raw Score 0=Dependent, 24=Independent; Low function Raw Score 0= Dependent, 32=Independent):Raw Score - Basic Mobility : 23T-Scale Score - Basic Mobility : 50.88Bed Mobility:Supine to sit: IndependentScooting to edge of bed: IndependentSit to supine: IndependentTransfers:Sit to stand: Independent using Rolling WalkerStand to sit: Independent using Rolling WalkerAlso completed sit to stand with no device independently(-) Romberg TestAmbulation:Assisted patient with ambulation as follows: 45 feet using Rolling Walker and Independent.Patient presenting with Step-to gait pattern. Slow taty.Pt. Reports ambulating to/from bathroom from the bed while holding onto the wall/furniture and educated to use rolling walker for safety and verbalized understanding.Therapeutic exercise:patient educated in Adaptive equipment , Compensatory techniques/adaptive strategies, Fall prevention, Relaxation/breathing techniques, and Safety awareness.Functional Outcome Measures: (Values within the past 12 hours)Tinetti Gait Score- # / 12Initiation of gait: No hesitancyStep length: Neither foot passes the otherFoot clearance: Both feet completely clear floorStep Symmetry: Step lengths equalStep continuity: Steps appear continuousPath: Mild/moderate deviation or uses ADTrunk: No sway, but flex of knees/ back or spreads armsWalking: Heels apartTinetti Gait Score: 7Tinetti Gait Score Interpretation: >= 7 - Low risk for fallsAfter session, patient semi reclined in bed and family present . Call button provided. RN notified.PLAN OF CARE:While in the hospital, PT will follow patient at least 2 times per week,once or twice a day, per patient's tolerance and needs.See below for complete details.Admit Date: 01/06/2024Hospital Diagnosis:Multiple sclerosis exacerbation [G35]PT Diagnosis: Difficulty walking, Weakness, Malaise/fatigue, Pain, and Abnormality of gait and balanceWeight Bearing Precaution: NAGeneral Precautions: PPE used:Gloves, General, Fall,Bracing/Cast present or required:N/APMH:Past Medical History:Diagnosis DateDiverticulitisHTN (hypertension)Hx of hysterectomyKidney stonesPneumonia due to unspecified StreptococcusSmokerSpinal stenosisPSH: History reviewed. No pertinent surgical history.Prior Living Situation: lives with their spouse and in a house,DME: Four wheeled walker with seatPrior level of Mobility: house hold ambulationSuspected ischemic or hemorraghic stroke:NoSubjective: Patient in bed and agreeable to Physical Therapy session. Patient reports " not good"Patient/Family Goals: Improve pain and numbnessPatient/Family verbalizes understanding of condition: YesPAIN:-Pain Description: aching and numbness-Pain Location: head, right leg, and left leg-Pain rating before treatment: does not rate, After treatment: does not rate-Pain Management: Nursing NotifiedCOMMUNICATIONPrimary Language: EnglishAble to Verbalize needs: YesVision:WFL No Other: visual blurring, double vision, glasses or contacts Hearing:good; no issues reportedORIENTATION/COGNITION:Oriente d to: person, place, date/time, and situationAwake: Yes Alert: Yes Dizzy: YesFollows Commands: Yes1-Step Yes Multi-Step YesInconsistent: NoNEUROLOGICALLight Touch: within functional limits bilateral LE,Heel to maradiaga: WFLTone: WNLBALANCE:Sitting: Static: Excellent Dynamic: GoodStanding: Static: Fair Dynamic: Poor+RANGE OF MOTION: within functional limits bilateral LE,STRENGTH: 3+/5 (F+), bilateral LEENDURANCE: Fair+, Room airSKIN INTEGRITY: intact,PROBLEM LIST: Decline in gait, Decreased strength, Decreased endurance, Decreased balance, Pain, and dizziness and numbnessASSESSMENT: Patient is a 58 year old female seen secondary to the above listed diagnosis. Patient would benefit from continued PT to address the above listed deficits to maximize independence and safety with functional mobility.Rehabilitation Potential: goodGoals: The following goals are to maximize independence and safety with functional mobility to eventually return to prior living situation and prior functional status.Upon discharge, patient and/or family will demonstrate the followin. Independent with ambulation, Feet: 150 using least assistive device.2. Demonstrate or verbalize understanding of home exercise program in order to continue with their rehab on their own.Treatment Plan: Gait training, Therapeutic exercise, Balance training, Equipment needs assessment, Safety education, patient/caregiver education, and Neuromuscular Re-EducationPATIENT EDUCATION: Patient provided with preferred teaching of verbal information on role of PT, plan of care, . Shows readiness to learn. Verbal instruction teaching provided. Individual is able to read and verbalizes understanding of teaching provided.Total Time Tx Codes in Minutes: 10 minTotal Treatment Time in Minutes: 25 minAmbrose Davidson PT, DPTLicense # [id number] Health Presbyterian [facility] of [facility] ServicesSon[facility] [id number] tigsJT4921-62-08U74:24:37Consult [id number]. [id number] for patient ijkj71093-1Xqswbdq noteLNNARRATIVEFormatted C-CDA narrative textUT[address] Walker Street[id number] XMMZGSCBVJRXMUFCAAOMW5574-62-16I02:24 :371.2.840.127124.1.72.3.15|1.2.840.1 [id number] 8 [facility] 2024-01-07 10:41:27 [id number]:41:27Associated Order(s): CONSULT SPEECH Speech-Language PathologyClinical Swallow Evaluation01/07/2024Sruthi Soto : 1965 Age/Sex: 58 year old female IN/OUT: [id number] Physician: Tao Wittte of Referral: 01/06/24Reason for Referral: dysphagiaDate of Admission/Onset: 01/06/24SUBJECTIVE:Patient awake/alert, agreeable to evaluation. Patient reports on-going dysphagia for the past few days and is only able to tolerate pureed foods. She endorses frequent choking episodes with solid food and globus sensation L > R. Patient also reports left-sided facial numbness.OBJECTIVE: is being seen for a clinical swallow evaluation. Sruthi Soto is a 58 year old female admitted for blurry vision and numbness with PMH significant for MS (diagnosed 2016), HTN, aortic enlargement, spinal stenosis, and anxiety. See chart for further details.Pertinent Imaging:XR CHEST 1 VWResult Date: 01/06/2024No radiographic evidence of acute cardiopulmonary process. Preliminary Report Dictated by Resident: Priyanka Sargent MD., have reviewed this study and agree with the above report.Previous ENROLLMENT ELIGIBILITY REPRESENTATIVE Services/Swallow History:None documented.Past Medical History:Diagnosis DateDiverticulitisHTN (hypertension)Hx of hysterectomyKidney stonesPneumonia due to unspecified StreptococcusSmokerSpinal stenosisHistory reviewed. No pertinent surgical history.General Behavior: Alert, Calm, and CooperativeHearing: WFL for speechRespiratory Status: room airOrientation/Cognition:- Patient oriented to: person, place, time, and situation- Response type: verbal- Follows 1-step commands: YesCurrent Diet Texture/Means of Nutrition: pureed (IDDSI level 4)-textured diet with thin liquids (IDDSI level 0)Oral Motor ExamDentition and Oral Cavity: dentate, natural dentition, many missing teeth, and moist oral mucosaFace within normal limits and symmetricalJaw within normal limits and symmetricalLips within normal limits and symmetricalTongue within normal limits and midline on protrusionPalate within normal limits and symmetricalVocal Quality clearSpeech clear/intelligibleCLINICAL SWALLOW EVALUATIONSwallows on command: YesHandles Secretions: YesVolitional Cough: Did not testSpontaneous Cough: NoPO trials were administered by patient. Patient was provided with multiple bites/sips of thin liquid (0), pudding (4), and regular solid (7) consistencies with the following observations:Oral Stage Anterior leakage of bolus not observedPocketing of bolus not observedSubjectively prolonged oral phase not observedOral residue not observedMastication WNLPharyngeal Stage Subjectively reduced laryngeal elevation not observedCoughing or throat clearing not observedChange in voice quality not observedMultiple swallows subjectively not observedRespiratory sufficiency and coordination WFL - no increased work of breathing and/or oxygen sats and respiratory rate remained stableReport of globus sensation yes3 oz water challenge passedPatient/Family/Staff education: Provided verbally. Discussed findings of evaluation, recommendations and ENROLLMENT ELIGIBILITY REPRESENTATIVE plan of care. Discussed recommendation/option for instrumental swallow assessment. Discussed risks of aspiration/dysphagia and possible associated complications including respiratory distress, respiratory infections (such as PNA), weight loss/difficulty meeting nutritional needs, possible need for mechanical ventilation, and even . Discussed recommendations for reducing risks of acquiring an aspiration-related respiratory infection including frequent, thorough oral hygiene care and maintaining good mobility as able. Educated about swallow precautions. Patient/family verbalized understanding and is in agreement with plan of care. RN and referring provider notified of findings and recommendations.Patient/Family goal: to swallow with less effort/discomfortASSESSMENT/IMPRESSIO NS:Sruthi Soto presents with:Diagnosis: suspected pharyngeal dysphagiaEtiology of suspected dysphagia/Risk factors for dysphagia: MSObservations/Complaints: no overt s/sx of aspiration, c/o dysphagia to solids>liquids, c/o globus sensation, and difficulty swallowing pillsFactors raising concern for aspiration or pharyngeal dysphagia: known diagnosis of MSSuspected risk for aspiration: lowFactors increasing risk for aspiration-related respiratory complication such as pneumonia: none evidentRisk for malnutrition/dehydration or not meeting nutritional needs: yesAdditional comments: Although no overt s/sx of aspiration observed, patient reports frequent coughing/choking episodes with solid foods. Patient would benefit from and MBS to r/o pharyngeal dysphagia.*Note: aspiration cannot be ruled out nor confirmed without instrumental assessment/imaging.Prognosis: favorable for safe po intake due to above findings.RECOMMENDATIONS/GOALS:Diet:P er patient's preference, recommend patient continue a pureed (IDDSI level 4)-textured diet with thin liquids (IDDSI level 0)Precautions:- Swallow Precautions: sit fully upright/in chair, alternate bites/sips, remain upright after PO intake, and slow rate of intakeInstrumental Swallow Assessment:- Recommend medical team place order for Modified Barium Swallow Study (COOKIE) to rule out aspiration, further assess swallowing physiology, determine safety for PO intake, and determine need for further dysphagia interventions.Additional Referrals:- None evident at this time.Continued ENROLLMENT ELIGIBILITY REPRESENTATIVE services while in-house:Further dysphagia recs to come pending completion of MBS.Discharge Recommendations:- Return to prior living situation.Concha Neal MA, PVU-LBVSczpmg-Sqfjfugt PathologistOffice [phone]: [phone] mbehAK9883-42-74B82:47:52Consult noteTXT1.2.840.530602.1.13.104.2.7.2. [id number] for patient qsno96698-5Myjwxhm noteLNNARRATIVEFormatted C-CDA narrative text[address] U[id number] LINZLKQKWZSKJYCMIVWTH5025-84-72B53:47 :521.2.840.561032.1.72.3.15|1.2.840.1 [id number] 3 [facility] 2024-01-07 08:24:40 [id number]:24:40Associated Order(s): CONSULT PSYCHIATRY DEPARTMENT OF PSYCHIATRY AND BEHAVIORAL SCIENCEInpatient Psych/Consult EvaluationMRN: [id number] Name: Sruthi Gavin WillieDOB: 1965Patient Address: [address] [place] [id number]'s Date: 4REASON FOR CONSULT:Severe anxiety related to worsening symptoms of multiple sclerosisCHIEF COMPLAINT: "anxiety"HISTORY OF PRESENT ILLNESS:Sruthi Soto is a 58 year old female with a PMH of multiple sclerosis, hypertension and spinal stenosis who was admitted on 12/06/23 for multiple sclerosis (MS) exacerbation. Psychiatry was consulted on 12/07/23 for severe anxiety.The patient states that she has been feeling "anxious, panic and fear" related to the worsening symptoms of her multiple sclerosis. The patient states that in November 2023, her symptoms of MS has began worsening and as a result, her anxiety has been worsening as well. The patient describes her anxiety to be "heart pounding" and feeling "anxious, worried and scared". She states that when it is bad, she feels like "she does not want to do this any more". The patient reports anxiety attacks that occur once every few weeks where she has and high intensity of anxiety. The patient reports a long history of "social anxiety" since she was a teenager. The patient reports that in 9th grade she took time off from school and when she returned back to school, her anxiety was so severe that she "couldn't do it". Additionally, the patient reports a long history of increased anxiety surrounding increased stress in her life.The patient reports feelings of depressed mood, difficulty sleeping, and decreased energy stating that these feelings are related to her worsening symptoms of MS. The patient additionally states that she sometime wants to "fall asleep and never wake up" because "everyone would be better without me". The patient denies prior suicidal ideation, suicide attempt and denies ever having a plan of suicide in the past. The patient states that symptoms she is feeling is more related to her anxiety and "not really depression".The patient denies currently seeing a psychiatrist or therapist outpatient. In 1988, the patient was started on Paxil for anxiety which she states helped her symptoms. The patient states she was on this medication for 2 year, but then discontinued the medication after researching possible side effects from the medication. Upon stopping this medication, the patient experiences nausea, vomiting and "electricity in her head". In "the early " the patient was prescribed Lexapro for her symptoms of anxiety with improvement after initiation. The patient was on Lexapro for "a couple years" before discontinuing due to financial stress and inability to refill script. The patient states that between Lexapro and Paxil, Lexapro was better in improving her symptoms.Today, the patient is feeling "okay". The patient states she has a good support system of , granddaughter, friends and family that she talks and interacts with often. Although, she does endorses high levels of anxiety surrounding her estimated length of stay in the hospital (5 days vs 3 days) and the potential of receiving a lumbar puncture. The patient states that she feels she cannot stay away from home for 5 days stating that it was "too long". She additionally reports having "spinal headaches" following a lumbar puncture after receiving an epidural in the past requiring a blood patch. Additionally, the patient states that she has read a lot of first hand accounts of other complications people have had after receiving a lumbar puncture. The patient states that "I am not getting a lumbar puncture". The patient would like to do more intensive research online on the medication Cymbalta that she is currently taking, but is open to continuing the medication for her nerve pain and to help with her symptoms of anxiety. She currently denies SI, HI and AVH.PSYCHIATRIC REVIEW OF SYSTEMS:Depression: DeniesAnxiety/Panic: Reports, see hpiA/V Hallucinations: DeniesDelusions: DeniesPTSD: DeniesSuicidal Ideation: DeniesPrevious Suicide Attempts: DeniesHomicidal Ideation: DeniesSUICIDE RISK ASSESSMENT:Risks:(Bolded is positive)SI, depression, guns at home, sleep, marital/employment status, h/o trauma, ongoing medical issues, age, substance use, past attemptsProtective:no intent or plan to harm self, family support, reasons for livingOverall:elevated riskPAST PSYCHIATRIC HISTORY:Past diagnoses: Generalize anxiety disorder, with panic attacksInpatient psychiatric treatment: DeniesOutpatient psychiatric treatment: DeniesCurrent Psychiatric Meds: DeniesPrevious Psychiatric Meds: Lexapro, paxilHistory of Suicide Attempts: DeniesSUBSTANCE USE:Alcohol: Reports rare useBenzodiazepines: DeniesOpiates: DeniesCocaine: DeniesMethamphetamine: DeniesOther Stimulants: DeniesHallucinogens: DeniesMarijuana: DeniesSynthetic marijuana: DeniesTobacco: Reports one pack per day since she has been a teenagerCBD: reports occasional use with lotion, oil and gummiesThe patient denies a h/o IVDA.SOCIAL HISTORY:Household: [place] in a home with and granddaughterHighest level of Education: 10th gradeEmployment: UnemployedLegal history: NoneSocial Support: Reports a good support system of , granddaughter, friends and family that she talks and interacts with oftenFAMILY PSYCHIATRIC HISTORY:Paternal grandfather had possible anxiety, depression and being "on edge". Reports father had alcohol abuse problems. Reports cousin by suicide in 2021.PAST MEDICAL HISTORY:Multiple sclerosis (diagnosed in 2017 with positive MRI)Denies head injury.Denies seizures.Past Medical History:Diagnosis DateDiverticulitisHTN (hypertension)Hx of hysterectomyKidney stonesPneumonia due to unspecified StreptococcusSmokerSpinal stenosisHistory reviewed. No pertinent surgical history.MEDICATIONS:Current Facility-Administered MedicationsMedication Dose Route Frequency Last Rate Last Admincyanocobalamin (DODEX) injection 1,000 mcg 1,000 mcg Intramuscular DAILYFollowed by[START ON 01/14/2024] vitamin B-12 (CYANOCOBALAMIN) tablet 1,000 mcg 1,000 mcg Oral DAILYKCL (KLOR-CON M20) tablet 20 mEq 20 mEq Oral ONCEacetaminophen (TYLENOL) tablet 500 mg 500 mg Oral Q6HPRN 500 mg at 01/06/24 2311[START ON 01/08/2024] aspirin chewable tablet 81 mg 81 mg Oral DAILYbisacodyL (DULCOLAX) tablet 5 mg 5 mg Oral DAILYcarvediloL (COREG) tablet 6.25 mg 6.25 mg Oral BID MEALS 6.25 mg at 01/06/24 2213DULoxetine (CYMBALTA) capsule 30 mg 30 mg Oral DAILY 30 mg at 01/06/242212famotidine (PEPCID AC) tablet 20 mg 20 mg Oral BID 20 mg at 01/06/241947heparin (porcine) injection 5,000 Units 5,000 Units Subcutaneous Q12H 5,000 Units at 01/06/241948ketorolac (TORADOL) injection 30 mg 30 mg Slow IV Push F2QQCKbactaeuus-npamxetnei (EMLA) 2.5-2.5 % cream Topical DAILYmelatonin (MELATIN) tablet 3 mg 3 mg Oral QHS 3 mg at 01/06/24 2213methylPREDNISolone sodium succinate (SOLU-MEDROL) 1,000 mg in D5W 250 mL VIAL-MATE IV piggyback 1,000 mg Intravenous DAILY Stopped at 01/06/242118NaCl 0.9% (NS) IV infusion 1,000 mL 1,000 mL IV Infusion CONTINUOUS Stopped at 01/07/24 0002proCHLORperazine (COMPAZINE) tablet 10 mg 10 mg Oral N0ORXLkpxpjmrh husk (METAMUCIL (SUGAR FREE)) 3.4 gram oral powder packet 1 Packet 1 Packet Oral DAILYSIDE EFFECTS/ALLERGIES:AllergiesAllergen ReactionsSulfa (Sulfonamide Antibiotics) RashVITAL SIGNS:BP 124/86 | Pulse 73 | Temp 36.3 ?C (97.3 ?F) | Resp 14 | Ht 1.651 m (5' 5") | Wt 74.8 kg (165 lb) | SpO2 93% | BMI 27.46 kg/m?MENTAL STATUS EXAM:Appearance: 58 year old white female sitting upright in bed holding cell phone. Appropriately groomed and dressedAttitude: Cooperative and FriendlyPsychomotor: Psychomotor NormalMood: "okay"Affect: Appropriate, Calm, Congruent Mood, and FullSpeech: Regular rate and volumeLanguage: NormalThought process: Logical Directed and CoherentAssociations: NormalAbnormal/Psychotic Thoughts:- Thought content: Without Delusions- Perceptual: Without Hallucinations- Suicidal: Not present- Violent/Homicidal: Not PresentCognition: Normal Cognition and Serial 3's IntactLevel of Consciousness: FullOrientation: Oriented x 4Recent/remote memory: Intact, able to repeat 3/3 words immediately and 2/3 words (3/3 with prompting) at 3 minutesIntelligence: AverageFund of knowledge: Average, able to name 5 cities outside of [place]Attention/concentration: Good, able to spell [place] backwards, able to follow interview without distractionsAbstraction: intact, able to name abstract meaning of "its raining cats and dogs outside"Judgment: IntactInsight: IntactLAB DATACBC BMP PT/INRWBC (10*3/?L)Date Value01/07/2024 9.73NA (mmol/L)Date Value01/07/2024 144No results found for: "PT"RBC (10*6/?L)Date Value01/07/2024 5.45 (H)K (mmol/L)Date Value01/07/2024 3.3 (L)INR (no units)Date Value01/06/2024 1.0PLT (10*3/?L)Date Value01/07/2024 307CALCIUM (mg/dL)Date Value01/07/2024 9.4HGB (g/dL)Date Value01/07/2024 15.2 (H)CL (mmol/L)Date Value01/07/2024 107aPTTHCT (%)Date Value01/07/2024 46.8 (H)BUN (mg/dL)Date Value01/07/2024 17APTT Patient (Seconds)Date Value01/06/2024 33CREATININE (mg/dL)Date Value01/07/2024 0.96ASSESSMENT/FORMULATION:Sruthi Soto is a 58 year old female with a PMH of multiple sclerosis, hypertension and spinal stenosis who was admitted on 12/06/23 for multiple sclerosis (MS) exacerbation. Psychiatry was consulted on 12/07/23 for severe anxiety.Today, the patient states she is doing well and denies SI, HI and AVH. Although, she does endorse increased symptoms of anxiety surrounding the exacerbation of her symptoms of MS requiring a hospital stay that is longer than she would prefer. Given the patient's long history of social and generalized anxiety, currently, the patient is likely experiencing an exacerbation of her anxiety given recurrence of her MS symptoms. The patient currently does not meet criteria for major depressive disorder. The patient's feelings of depressed mood, difficulty sleeping, and decreased energy are reasonable emotional responses to the increasing severity of her MS symptoms. The patient is currently on Cymbalta 30 mg daily and the patient is open to continuing the medications although planning to research the medication online to decide if she would like to continue to take it. If the patient is agreeable to continuing Cymbalta, we recommend increasing the dose from 30 mg daily to 60 mg daily. If the patient is not agreeable to continuing Cymbalta, we recommend starting Lexapro 10 mg daily. In regards of her anxiety towards lumbar puncture, we recommend continued education about rationale and risks about procedure.Patient currently is not suicidal and, as such, patient does not meet criteria for psychiatric inpatient admission as there is no apparent immediate danger.DIAGNOSES/PLAN:1. Generalized anxiety disorder- Recommend increasing Cymbalta to 60 mg daily- If not agreeable to continuing Cymbalta, we recommend starting Lexapro 10 mg daily.- Patient recommended to follow up with [facility] Outpatient Psychiatry ([place]): [phone], ([place]): [phone] or [facility]: or [facility]: or [facility]: [phone] after hospital discharge for psychiatric medicationsIf the patient feels in danger, suicidal, pt can contact these suicide hotlines or or to go to the nearest emergency department.Thank you for this consult. Will continue to follow.Patient discussed with Psychiatry faculty, Dr. Valiente, who agrees with the assessment and plan as outlined above.Allan Montana MS4C/L Pager # [phone]/ personally examined the patient on 01/07/2024 and have verified the medical student documentation and/or findings, including the history, physical exam, and medical decision making. Additionally, I have personally performed or re-performed the physical exam and medical decision making activities of this patient's evaluation and management service.[facility] [place]LOTTE Chen-3 ResidentNeurology DepartmentUnTexas Scottish Rite Hospital for Children ssociated attestation - Buffy Valiente MD - 01/07/2024 2:36 PM CST I saw/examined this patient today with Dr. Torres and Med Student Rubén. I actively participated in the medical decision-making process and I agree with the attached note.[id number] [id number], Gwen1.2.840.915462.1.13.104.2.7.2.836 844DzhdahAjmlUZ8533-54-43I45:36:56Con sult noteTXT1.2.840.127666.1.13.104.2.7.2. 195496|[id number] for patient mfzi86339-7Nfwrbeg noteLNNARRATIVEFormatted C-CDA narrative textUT[address] [id number] FUBURJXPOJGKSCGWWAVND9469-79-79Q58:36 :561.2.840.378718.1.72.3.15|1.2.840.1 [id number] 5 [facility] 2024-01-07 08:00:00 [id number]:00:00Associated Order(s): CONSULT ADULT OCCUPATIONAL THERAPY Images from the original note were not included.OT NOTEConsult received and chart reviewed.Answered consult under progress note.Copied information down below for reference only.Please refer back to progress note this date for full information.ThanksDani Siddiqui Sheila E, OTOCCUPATIONAL THERAPYProgress NotesSignedDate of Service: 01/07/2024 8:00 AMCreation Time: 01/07/2024 8:30 AMOT GENERAL EVALUATIONConsult received via Spectrum5, EMR reviewed and evaluation completed 01/07/24. Patient referred to occupational therapy for evaluation and treatment secondary to blurry vision and numbness. Patient agreeable to participate in occupational therapy.Discharge Recommendations:Therapy Needs and Potential:- Patient would benefit from continued skilled occupational therapy services to address: Decline in basic activities of daily living, Decline in instrumental activities of daily living, Decreased strength, and Decreased endurance- Patient demonstrates good potential to improve and meet therapy goals with further skilled occupational therapy services.- Patient appears motivated to improve their B/IADLs and return to their previous level of function.- Patient demonstrates ability to tolerate at least 30-60 minutes of active participation in occupational therapy.- Patient able to follow commands: 1-step Yes, Multi-step Yes, Inconsistencies NoChallenges to Home Transition:- Requires physical assistance for BADLS- Requires physical assistance for IADLS- Requires supervision or verbal cues for BADLS- Limited caregiver availability- Increased risk of fallsEquipment Recommendations:Bedside commode, Shower chair, Hand held shower, Long handled sponge, Long handled theatre arts professor, and Sock aidePLAN OF CARE: At least 3x/weekPrecautions:Weight bearing status: NAGeneral: PPE Utilized: Gloves, Fall, HOB at 30 degrees, and cardiac monitoring through telemetryBracing: N/ACurrent Occupational Performance and/or Treatment:AM-PAC 6 Clicks (Raw Score 0=Dependent, 24=Independent; Low function Raw Score 0= Dependent, 32=Independent):Raw Score - Daily Activity: 20T-Scale Score - Daily Activity: 42.03Feeding: Independent, observed drinking from cupGrooming: Supervision, with oral care - provided with materialsSimulated UB Bathing: Minimal Assistance, at bedside simulationSimulated LB Bathing: Moderate Assistance, simulated at bedsideUB Dressing: Minimal Assistance, with donning of hospital gownLB Dressing: Moderate Assistance, with doffing and donning of socksSimulated Tub/Shower Transfer: Moderate Assistance, Simulated at bedside but patient had difficulty lifting Both legs to walk forward and observation of MIKHAIL legs with some jerking motions at kneeSimulated Toilet Transfer: Moderate Assistance, Simulated to stand and take a few steps to side - again noted jerking motion of MIKHAIL kneesSimulated Toileting Hygiene: Supervision, (patient disconnected purewick) does not wantFunctional Mobility: Patient was able to perform supine to edge of bed with Supervision for safety. Once at edge attempted to perform above mentioned ADL transfers but was unable to progress past 2 steps forward before her knees began to jerk. Patient sat back down and was able to side scoot up towards head of bed with Supervision.Patient/caregiver educated on:ADL training using Compensatory techniques/adaptive strategies (figure four technique for LB dressing), Fall prevention when performing ADL transfers, Positioning of UB in bed to prevent PNA and ankle pumps for prevention of clots legs, Role of OT in care, and Safety awareness when OOBPatient left semireclining in bed with call poe in reach. MIKHAIL LE elevated. Please, see full evaluation below for more detail.OT EVALUATION:58 year old female Admit date: 01/06/2024 Date of onset: 3-2-9789Pngdl Diagnosis: Multiple sclerosis exacerbation [G35]OT Diagnosis: Impaired BADL independence, Impaired IADL independence, Weakness, and Impaired self-care mobilityPMH:Past Medical History:Diagnosis DateDiverticulitisHTN (hypertension)Hx of hysterectomyKidney stonesPneumonia due to unspecified StreptococcusSmokerSpinal stenosisPSH: History reviewed. No pertinent surgical history.PAIN:Pain Location: MIKHAIL feetPain rating before treatment: 4, After treatment: 4Pain Management: Patient denies need for pain medsOCCUPATIONAL ROLES/HOME ENVIRONMENT:Home environment: Lives with spouse and granddaughter, 24/06 supervision/assistance is available, Single story home, and patient reports her house is in "bad shape".Bathroom access: YesBathroom setup: has access to both walk in shower and stand alone tubOccupation(s): DisabledFunction prior to admission: reports a decline in ADL performance since symptoms began over two weeks agoSuspected ischemic or hemorraghic stroke patient: NoEquipment prior to admission: NonePERFORMANCE SKILLS/FACTORS:UE Muscle Tone: bilateral WNLUE ROM: bilateral AROM WFLUE Strength: MIKHAIL UE 3/5Hand dominance: rightDexterity/Coordination: bilateral Fine motor skills IntactEndurance - Sitting: Fair+ Standing: Poor+Sitting Balance - Static: Good Dynamic: Fair+Standing: Balance - Static Fair - Dynamic: Poor+Dizziness: YesSkin Integrity: No breakdown notedSensation: bilateral UE's Intact to light touch ; reports numbness with hypersensitivity in MIKHAIL feetOral Motor: WFL and reports some difficulty with swallowing at times (recommend Speech consult)Communication: Able to verbalize needs Yes Other: N/AVision: WFL No Other: visual blurring, double vision, glasses or contacts. Patient was able to discern all periphery visual tests and could make out color differences but reports blurry vision and some double if she strains to look at thingsHearing: good; no issues reportedCOGNITION:Orientation: person, place, date/time, and situationFollows Commands: 1-step Yes Multi-step Yes Inconsistencies NoSafety Awareness/Judgment: GoodPROBLEM LIST: Decreased independence with ADL and Decreased strength/endurance for functional activityREHAB POTENTIAL/PROGNOSIS: goodPATIENT/FAMILY GOALS: to get strongerTREATMENT/INTERVENTION PLAN: Patient/Caregiver Education, Equipment recommendations, Daily living activities, and Therapeutic exercisesGOAL(S): By discharge, patient will increase independence in daily living skills as follows:1 Patient will perform 3 in 1 BSC transfer with supervision.2 Patient will perform shower transfer with supervision.3 Patient will perform UB dressing with independence.4 Patient will perform LB dressing with supervision using compensatory techniques.5 Patient will complete grooming tasks with supervision while standing at the sink.6 Patient will complete toileting hygiene, including clothing management, with independence.7 Patient will increase endurance for functional activity as evidenced by ability to sustain 30 minutes of active participation.8 Patient/caregiver will verbalize/demonstrate understanding/proficiency in the following home programs: Adaptive equipment , Compensatory techniques/adaptive strategies, Energy conservation, Fall prevention, General strengthening, and Towel/dowelPATIENT-FAMILY TEACHINGPatient provided with preferred teaching of verbal information and demonstration on ADL training, Compensatory techniques/adaptive strategies, Fall prevention, Positioning, Role of OT, and Safety awareness. Shows readiness to learn. Verbal instruction and Demonstration teaching provided. Individual is able to read and needs reinforcement of teaching.Shanti SiddiquiT.Christian.[phone] pgr.Total Timed Treatment Codes: 14 MinTotal Treatment Time: 24 MinPatient Complexity Level High - An occupational therapy evaluation of high complexity was completed using the above tests and measures. The following information was obtained: An occupational profile and medical and therapy history, including review of medical and/or therapy records and extensive additional review of physical, cognitive, or psychosocial history related to current functional performance, Various standardized and non-standardized assessments were used to identify at least 5 or more performance deficits related to physical, cognitive, or psychosocial skills that result in activity limitations and/or participation restrictions, and Clinical decision-making is of high analytic complexity, which includes an analysis of the patient profile, analysis of data from comprehensive assessment(s), and consideration of multiple treatment options. Patient present with comorbidities that affect occupational performance. Significant modification of tasks or assistance (e.g., physical or verbal) with assessment(s) is necessary to enable patient to complete evaluation component. 33269-9Gohnhgi swbgHQ9241-14-36V94:06:45Consult noteTXT1.2.840.240006.1.13.104.2.7.2. 405448|[id number] for patient veft62658-0Zigtqov noteLNNARRATIVEFormatted C-CDA narrative text[address] Wl[id number] BZYMMVASPOMYDHNOHZIGS5334-25-38H88:06 :451.2.840.000373.1.72.3.15|1.2.840.1 [id number] 6 [facility] 2024-01-06 14:55:33 [id number]:55:33Associated Order(s): CONSULT NEUROLOGY GENERAL NEUROLOGY CONSULT NOTEDATE OF SERVICE: 01/06/2024 14:55REQUESTING PHYSICIAN: Americo Grimaldo for Consult: We were asked to see this patient to give my opinion regarding Sruthi Soto, 58 year old , female who presents with blurry vision and numbness.HISTORY OF PRESENT ILLNESSSruthi Soto is a 58 year old female right handed female with a PMH of anxiety, HTN, spinal stenosis who presents with blurry vision and numbness. Patient reports that she was diagnosed with MS through a positive MRI in 2016 after presenting with left sided optic neuritis with return of 20% of vision after treatment. Patient was given tecfidera for about 1 year and lost insurance and has not followed up since then. Patient also reports side effects like flushing, abdominal, constipation, diarrhea that made her all around uncomfortable with the medication. Patient reports that her symptoms for this episode started a few days before blas where her right eye also started seeing blurry vision where she cannot make out objects. Patient endorses no change in color vision with ability to still drive. Patient also endorses left eyelid itchiness. Extraocular movements hurt for the left eye with peripheral eye movement.Patient also reports numbness in multiple areas of the body and face that started on December 11 and has been progressively worsening: left sided facial numbness started and now has become the bilateral feet, legs and left arm. Patient also endorses back pain and numbness due to a history of spinal stenosis. Patient also endorses left finger stiffness where she was unable to let go of objects. She also reports difficulty swallowing that started on December 11 where she choked on foods and started eating soft foods after that episode. This has made it difficult for her to swallow pills.Patient also endorses episodes of constipation during the past couple of weeks, 1st episode 3 weeks ago where she tried an enema, glycerin suppository with BM after some time. Currently, she reports a little bit of constipation but did have a small BM last night after some time but hasn't eating enough.After 2016, patient endorses numbness of leg twice, once in each leg but was not severe and went away after 3 weeks. On December 11, she went to a hospital in [place] where they did a head CT and gave her zofran, fluids and oral prednisone 40 mg daily did not help.PAST MEDICAL HISTORYPast Medical History:Diagnosis DateDiverticulitisHTN (hypertension)Hx of hysterectomyKidney stonesPneumonia due to unspecified StreptococcusSmokerSpinal stenosisPAST SURGICAL HISTORYHistory reviewed. No pertinent surgical history.FAMILY HISTORYNo family history on file.SOCIAL HISTORYSocial HistorySocioeconomic HistoryMarital status: MarriedTobacco UseSmoking status: Every DaySmokeless tobacco: NeverReviewed patient's family, surgical and social hx.HOME MEDICATIONS(Not in a hospital admission)HOSPITAL MEDICATIONSNo current facility-administered medications for this encounter.Current Outpatient MedicationsMedication Sig Dispense Refillaspirin 81 mg chewable tablet Take 81 mg by mouth daily. Indications: Safety coded- non chewablecarvedilol 6.25 mg tablet Take 6.25 mg by mouth 2 (two) times daily with meals.losartan 50 mg tablet Take 50 mg by mouth daily.TYLENOL-CODEINE #3 300-30 mg tablet Take 2 tablets by mouth every 4 (four) hours as needed for Pain (scale 1-3). 20 tablet 0ALLERGYAllergiesAllergen ReactionsSulfa (Sulfonamide Antibiotics) RashREVIEW OF SYSTEMSGeneral: (-) fever, (-) chills, (-) weight change, (-) dizziness, (+) fatigue, (+) change in appetiteSkin: (-) rash, (-) lesionHEENT: (+) headache, (-) change in hearing, (-) change in vision, (-) nasal discharge, (-) sore throatNeck: (-) pain, (-) difficulty swallowing, (-) massHeme: (-) bleeding disorderResp: (-) cough, (-) shortness of breath, (-) dyspnea on exertionCardio: (-) chest pain, (-) palpitations, (-) syncopeGI: (-) abdominal pain, (+) nausea, (-) vomiting, (-) diarrhea, (+) constipation, (-) melena, (-) hematochezia, (-) hematemesisGU: (-) dysuria, (-) hematuria, (-) increased frequency, (+) difficulty urinating, (-) difficulty initiatingEndo: (-) heat intolerance, (-) diabetes, (-) cold intolerance, (-) polyuria, (-) polydipsia, (-) renal insufficiency, (-) thyroid diseaseNeuro: See HPIBack: (+) pain, (-)spasmsMSS: (+) muscle pain, (-) joint pain, (-) claudicationPsych: (-) anxiety, (-) depression, (-) psychiatric disorderPHYSICAL EXAMVitals:01/06/24 1307 01/06/24 1400BP: (!) 137/95 (!) 154/98Pulse: 74 69Resp: 20 19Temp: 36.4 ?C (97.5 ?F)SpO2: 99% 99%Weight: 74.8 kg (165 lb)General:Alert and oriented x 4 (time, person, place and situation); no apparent distress.Mental Status:Consciousness, attention, concentration: normal, Stays focused and on task while being questioned.Speech/ Language: intact to comprehension, fluency, repetition and naming.Fund of knowledge: is congruent with level of education.Remote and recent memory: normal, can recall recent and distant memoriesCranial Nerves:I. Not tested.II. PERRL. FOV full to confrontation. Discs visualized, no papilledema. + Left sided RAPDIII. IV., . Extraocular movements intact without nystagmus.V. Normal sensation in V1-3 distributions.VII. No facial droop noted.VIII. Hearing intact.IX., X. Palatal elevation and gag response present symmetrically.XI. Normal Strength of sternocleidomastoid and trapezius muscles bilaterally.XII. Tongue in midline.Motor:Tone: normalBulk: normalSTRENGTH Right LeftDeltoid 5 5Biceps 5 5Triceps 5 5Wrist extensors 5 5Interossei 5 5Hip flexors 4 4Knee flexors (hamstring) 4 4Knee extensors (quadriceps) 4 4Ankle dorsiflexors 5 5Ankle plantar flexors 5 5DTR's:Right LeftBicep 2+ 2+Triceps 0 0Brachioradialis 2+ 2+Patella 2+ 2+Achilles 0 0Strength and reflex exam pain limitedPathologic reflexes and signs:Patel: absentBabinski: absentJaw Jerk: absentCerebellar:Nystagmus: neg, FTN: nl, HTS:nl, Tremors: neg, Dysdiadochokinesia: negSensory:LT: intact, temperature: intact, PP: intact, proprioception: intact, Vibration: intactGait: normalHEENT: pupils equal, round, reactive to light; extraocular movements intact; oropharynx clear; moist mucous membranesLungs: clear to auscultation bilaterallyCardio: S1, S2 normalExtremities:no cyanosis,clubbing or edemaNeck:supple,no carotid bruit,no JVDAbdomen: soft; non-tender; non-distended; normoactive bowel sounds heardLABSRecent Results (from the past 24 hour(s))CBC WITH DIFFCollection Time: 01/06/24 1:40 PMResult Value Ref RangeWBC 8.35 4.30 - 11.10 10*3/?LRBC 5.32 (H) 3.93 - 5.25 10*6/?LHGB 15.0 11.6 - 15.0 g/dLHCT 45.0 35.7 - 45.2 %MCV 84.6 80.6 - 95.5 fLMCH 28.2 25.9 - 32.8 pgMCHC 33.3 31.6 - 35.1 g/dLRDW-SD 41.2 39.0 - 49.9 fLRDW-CV 13.3 12.0 - 15.5 %PLT 240 166 - 358 10*3/?LMPV 10.8 9.5 - 12.9 fLNRBC/100 WBC 0.0 0.0 - 10.0 /100 WBCsNRBC x10^3 <0.01 10*3/?LGRAN MAT (NEUT) % 71.5 %IMM GRAN % 0.60 %LYMPH % 20.4 %MONO % 6.1 %EOS % 1.0 %BASO % 0.4 %GRAN MAT x10^3(ANC) 5.98 1.88 - 7.09 10*3/uLIMM GRAN x10^3 0.05 0.00 - 0.06 10*3/uLLYMPH x10^3 1.70 1.32 - 3.29 10*3/uLMONO x10^3 0.51 0.33 - 0.92 10*3/uLEOS x10^3 0.08 0.03 - 0.39 10*3/uLBASO x10^3 0.03 0.01 - 0.07 10*3/uLCOMP. METABOLIC PANEL ([id number])Collection Time: 01/06/24 1:40 PMResult Value Ref RangeNA 140 135 - 145 mmol/LK 3.7 3.5 - 5.0 mmol/LCL 109 (H) 98 - 108 mmol/LCO2 TOTAL 24 23 - 31 mmol/LAGAP 7 2 - 16BUN 17 7 - 23 mg/dLGLUCOSE 87 70 - 110 mg/dLCREATININE 0.95 0.50 - 1.04 mg/dLTOTAL BILI 0.8 0.1 - 1.1 mg/dLCALCIUM 9.3 8.6 - 10.6 mg/Lolita PROTEIN 6.9 6.3 - 8.2 g/dLALBUMIN 4.2 3.5 - 5.0 g/dLALK PHOS 80 34 - 122 U/LALTv 21 5 - 35 U/LAST(SGOT) 24 13 - 40 U/LeGFR 70.0 mL/min/1.64y6KlwtnkkynPsuthnzxeq Time: 01/06/24 1:40 PMResult Value Ref RangeMAGNESIUM 2.3 1.7 - 2.4 mg/dLRADIOLOGYNo final results containing an impression from the past 48 hours were found.ASSESSMENT AND RECOMMENDATIONSSruthi Soto is a 58 year old female with PMHx of optic neuritis, HTN, admitted to the hospital with cc of blurry vision and numbness. Neurology consulted for possible MS exacerbation.Bilateral Blurry Vision c/f optic neuritsBilateral lower extremity numbnessAnxietyHx of Optic neurits (2017)Hx HTNPatient is presenting with blurry vision and progressively worsening generalized numbness and tingling. Patient could be presenting with possible MS exacerbation but other etiologies will need to be ruled out. Patient will need high dose IV steroids, autoimmune /inflammatory work up and MRI of the orbits and spine.- Admit to neurology- if UA+CXR neg start IV Methylpred 1g x 5 days- Autoimmune/inflammatory workup- MRI Brain, orbit and C+T spine- bladder scan q6h, dulcolax daily- start duloxetine 30 mg daily and emla cream- Psychology consult- c/w home coreg 6.25DIET: RegularDVT ppx- Heparin, prophylacticBowel reg: DulcolaxGI ppx: FamotidinePT/OT: PT OT SLPPAIN: Tylenol, Lidocaine patchNausea/vomiting: compazine prnSleep: melatonin prnCode Status: FULLCase was discussed and seen with Dr. Hodges, neurology faculty.Sara Elise, MS3I personally examined the patient on 01/06/24 and have verified the medical student documentation and/or findings, including the history, physical exam, and medical decision making. Additionally, I have personally performed or re-performed the physical exam and medical decision making activities of this patient's evaluation and management service.Braeden Witt, OTISGY3, Neurology01/06/2024 ssociated attestation - Oly Hodges MD - 01/07/2024 12:26 PM CST Left RAPDRigth 20/60 and left 20/100Right hemiparesisSensory deficits on right and left legsHyperrefelxiaRight planter withdrawalRight LE tone increasedMRI Brain and orbitMRI C and T spine for stagingVit DR/o other mimickersPT/MG personally examined the patient on 01/07/[address] Witt's note . I actively participated in the decision-making process. Please see the resident's note for additional details.Oly Hodges MD11488-4Consult [id number], Oly1.2.840.030237.1.13.104.2.7.2 .450618UvcqsVxlqmjndN, HQ6843-14-41Y88:26:09Consult noteTXT1.2.840.627495.1.13.104.2.7.2. 553145|[id number] for patient kwyg35692-0Ijnycxn noteLNNARRATIVEFormatted C-CDA narrative textUTSIERRA VISTA HOSPITAL - [address]Um[id number] LRJYDHFTBZPVLXMTDJPOS7781-88-56X07:26 :091.2.840.894718.1.72.3.15|1.2.840.1 23401.1.13.104.2.7.2.727879_[id number] 5 [facility] History and Physical Notes Date/Time Note Provider Source 2024-01-06 16:48:31 4149-50-94Z88:48:31F ormatting of this note might be different from the original.See Neurology Consult Note dated 01/06/24OTIS HeardGY3, Neurology01/06/2024 ssociated attestation - Oly Hodges MD - 01/06/2024 6:41 PM CST Agree with above.Oly Hodges MD34117-2History and physical inklPX1635443Tbhtj, Oly1.2.840.005836.1.13.104.2.7.2.8369 82PaMD Chris2024-02-05T18:41:10History and physical noteTXT1.2.840.763574.1.13.104.2.7.2.19248 9|[id number] for patient qtfm96298-3Khqdeur and physical noteLNNARRATIVEFormatted C-CDA narrative text[id number] YJTPSXRCIJVKEAFB1453-71-71Z31:41:101.2.840 .632977.1.72.3.15|1.2.840.298936.1.13.104. 2.7.2.727879_[id number] [facility] Notes Date/Time Note Provider Source 2024-01-17 07:52:34 3076-26-87P20:52:34 CHP [place]. [address]-2Yuungsldo encounter GjktJI5694-97-44L10:53:13Telephone encounter NoteTXT1.2.840.250833.1.13.104.2.7. 2.555532|[id number] for patient cnjh93371-7QgfbBCNTVDDBJMQBgdslagtm C-CDA narrative [id number] Rivas [address] [id number] 8EGNSUKLZXFKHTVTODMSGJF1245-72-58Q0 7:53:131.2.840.623244.1.72.3.15|1.2 .840.533680.1.13.104.2.7.2.727879_2 [id number] Sowmya Machuca LVN [facility] 2024-01-10 10:50:40 0192-16-29G27:50:40 Problem: Discharge PlanningGoal: Adequate for discharge01/10/2024 1050 by Jazmin Diop RNOutcome: ResolvedGoal: Effective communication01/10/2024 1050 by Jazmin Diop RNOutcome: ResolvedProblem: Falls, Risk ofGoal: Absence of falls01/10/2024 1050 by Jazmin Diop RNOutcome: ResolvedProblem: PainGoal: Control of pain at or below patient's documented comfort goal01/10/2024 1050 by Jazmin Diop RNOutcome: ResolvedGoal: Reduction in pain sensation01/10/2024 1050 by Jazmin Diop RNOutcome: Resolved 46121-2Jwqf of care fsclAW5367-71-93K62:51:15Plan of care noteTXT1.2.840.429013.1.13.104.2.7. 2.370497|[id number] for patient gmmq10510-0DajpIZLIEFEWTECEeykceyor C-CDA narrative kvrcFO-PJCYYLYCJCFX-PDTFXFMVNSWTNMO [facility] [employer] Aykr[id number] 4NPBFDGJZIKQAFJUVHGRVLA1836-00-44H9 0:51:151.2.840.118677.1.72.3.15|1.2 .840.429797.1.13.104.2.7.2.727879_2 [id number] PN-PSYCHIATRY [facility] 2024-01-10 01:08:37 9998-71-81K08:08:37 Problem: Discharge PlanningGoal: Adequate for discharge01/10/2024 0108 by Prudence Mehta RNOutcome: Progressing as expected01/09/2024 2237 by Prudence Mehta RNOutcome: Progressing as expectedGoal: Effective communication01/10/2024107 by Prudence Mehta RNOutcome: Progressing as expected01/09/20242236 by Prudence Mehta RNOutcome: Progressing as expectedProblem: Falls, Risk ofGoal: Absence of falls01/10/2024107 by Prudence Mehta RNOutcome: Progressing as expected01/09/20242236 by Prudence Mehta RNOutcome: Progressing as expectedProblem: PainGoal: Control of pain at or below patient's documented comfort goal01/10/2024107 by Prudence Mehta RNOutcome: Progressing as expected01/09/20242236 by Prudence Mehta RNOutcome: Progressing as expectedGoal: Reduction in pain sensation01/10/2024107 by Prudence Mehta RNOutcome: Progressing as expected01/09/20242236 by Prudence Mehta RNOutcome: Progressing as expected 01400-2Xbpt of care ynkvWR9339-49-58T58:08:41Plan of care noteTXT1.2.840.629699.1.13.104.2.7. 2.717159|[id number] for patient tdws99847-3CqfiLIVVWUMUJETIscobidzl C-CDA narrative [id number] R Booty RN[address] StreetEv[id number] 1ZPEABTSEQJRVPAECSQYDQO7725-48-44Q1 1:08:411.2.840.987673.1.72.3.15|1.2 .840.000229.1.13.104.2.7.2.727879_2 [id number] Prudence Mehta RN [facility] 2024-01-09 22:38:00 6845-95-13P39:38:00 Problem: Discharge PlanningGoal: Adequate for dischargeOutcome: Progressing as expectedGoal: Effective communicationOutcome: Progressing as expectedProblem: Falls, Risk ofGoal: Absence of fallsOutcome: Progressing as expectedProblem: PainGoal: Control of pain at or below patient's documented comfort goalOutcome: Progressing as expectedGoal: Reduction in pain sensationOutcome: Progressing as expected 03140-8Zivt of care riboMR3128-12-12Q48:38:10Plan of care noteTXT1.2.840.769790.1.13.104.2.7. 2.713147|[id number] for patient heyr99059-9FemiVONPEYDKDQMCbzjgooff C-CDA narrative [employer]13 [address] StreetSm[id number] 1XKFLTGGZKOTZSXKNMQETXD1492-45-66W4 2:38:101.2.840.104147.1.72.3.15|1.2 .840.433072.1.13.104.2.7.2.727879_2 [id number] [facility] 2024-01-09 04:43:44 3381-88-71J05:43:44 Problem: Discharge PlanningGoal: Adequate for dischargeOutcome: Progressing as expectedGoal: Effective communicationOutcome: Progressing as expectedProblem: Falls, Risk ofGoal: Absence of fallsOutcome: Progressing as expectedProblem: PainGoal: Control of pain at or below patient's documented comfort goalOutcome: Progressing as expectedGoal: Reduction in pain sensationOutcome: Progressing as expected 18557-1Vsob of care jpjpDB0417-60-49R04:43:48Plan of care noteTXT1.2.840.808524.1.13.104.2.7. 2.922209|[id number] for patient wzjs18465-4SjhrXNCOFOLEPDKHghkdedvt C-CDA narrative textBoost My Ads[address] Wi[id number] 7TMXDXVCJILBNNYRKCZUWCE9846-37-50E0 4:43:481.2.840.232494.1.72.3.15|1.2 .840.191550.1.13.104.2.7.2.727879_2 [id number] [facility] 2024-01-08 09:02:13 2196-14-13C16:02:13 Name/ MRN / Age / Gender:Sruthi Soto, [id number] year old femaleBMI:Estimated body mass index is 27.46 kg/m? as calculated from the following:Height as of this encounter: 1.651 m (5' 5").Weight as of this encounter: 74.8 kg (165 lb).Allergies:Sulfa (sulfonamide antibiotics)Last Vitals:BP Readings from Last 1 Encounters:01/08/24 135/75Pulse Readings from Last 1 Encounters:01/08/24 59SpO2 Readings from Last 1 Encounters:01/08/24 91%Date of Surgery: 01/08/2024Surgeon: AnesthesiologyProcedure: MAGNETIC RESONANCE IMAGING UNDER ANESTHESIAOR [facility] (no physical exam)Anesthesia Preop: Chart ReviewAPAC Communication: Sruthi Soto is a 58 year old female admitted for MS exacerbation, receiving MRI of brain/orbit/C and T spine. She is being treated with high dose methylprednisolone 1g.PONV Risk Factors: femaleAnesthesia HistoryAnesthesia History Negative per Chart ReviewPrevious Anesthetics/AirwaysCardiovascular(+ ) Hypertension, well controlled, chronic and on beta melina therapyTime/Date last beta melina taken: 01/07/24 1800PulmonaryPulmonary ROS Negative per Chart ReviewNeuro/MusculoskeletalComments : CC: Admitted for multiple sclerosis exacerbation(+) Anxiety(+) Neuromuscular Disease and Multiple Sclerosis(-) ObesityGI/HepaticHematologyComments : HGB (g/dL)Date Value01/07/2024 15.2 (H) 324PLT 307(+) On anti-coagulant therapy (Heparin DVT prophylaxis)RenalComments: K (mmol/L)Date Value01/07/2024 3.3 (L) CREATININE (mg/dL)Date Value01/07/2024 0.96 SkinEndo/Other(+) Steriod use (methylprednisolone)OtherOB/GYNPedi atricPediatric N/ANeonatalNeonatal N/APreoperative Medication InstructionsContinue taking all prescribed medications except:MARIA DE JESUS inhibitors, ARBs, diuretics, all oral diabetes medicationsAnticoagulant Therapy: Defer to surgeonsInsulin: Take 1/2 dose the night prior to surgery. Hold on DOS.Phentermine: Alert [facility] anesthesiologistSGLT2 Inhibitors: "gliflozins" to be held for 3 days prior to elective surgeriesGLP1 Agonosit: stop 7 days prior to surgeryMAC Cases: Continue taking MARIA DE JESUS inhibitors and ARBsASA ClassificationASA: 2Current Medications:No outpatient medications have been marked as taking for the 01/06/24 encounter (Hospital Encounter).Previous Surgeries: History reviewed. No pertinent surgical history.Physical ExamAnesthesia PlanASA Status: 2Plan discussed during pre-op evaluation: GeneralAnesthetic plan on DOS: GeneralPlan to include: IV induction and ETTAnesthesia plan discussed with: patient or representativePost-Operative Analgesia: routine analgesia & antiemeticsRecovery Plan: PACUAdditional comments: 73961-6Jchokuhukrdtpv Preoperative evaluation and management ydovBT7875-49-34I68:08:21Anesthesio logy Preoperative evaluation and management noteTXT1.2.840.717689.1.13.104.2.7. 2.119529|[id number] for patient mtji62043-9Odfelknn operation noteLNNARRATIVEFormatted C-CDA narrative eeieHC-RIXPGYIGOJJGTOVR-GEXIDKSPZNC [address] Zs[id number] 1FQMTUVKKECNLAXBPGUWCUD1412-37-66J3 9:08:211.2.840.510223.1.72.3.15|1.2 .840.639432.1.13.104.2.7.2.727879_2 [id number] AN-ANESTHESIOLOGY [facility] 2024-01-08 07:12:19 4952-88-99Y68:12:19 Problem: Discharge PlanningGoal: Adequate for dischargeOutcome: Adequate for dischargeProblem: Discharge PlanningGoal: Effective communicationOutcome: Adequate for dischargeProblem: Falls, Risk ofGoal: Absence of fallsOutcome: Adequate for dischargeProblem: PainGoal: Control of pain at or below patient's documented comfort goalOutcome: Adequate for dischargeProblem: PainGoal: Reduction in pain sensationOutcome: Adequate for discharge 16650-7Ewff of care rhkgXG8966-01-99Q77:12:25Plan of care noteTXT1.2.840.323443.1.13.104.2.7. 2.756354|[id number] for patient djue36062-7IrxwYUOUYCODNHSMfgtsgpxl C-CDA narrative [id number] W Bosarge RN[address] Zn[id number] 9FWPFTZBPKUOEUJEBNVAIOL1311-84-15Y4 7:12:251.2.840.125922.1.72.3.15|1.2 .840.682679.1.13.104.2.7.2.727879_2 [id number] Claudia Joseph RN [facility] 2024-01-08 00:52:23 5221-71-47H15:52:23 Problem: Discharge PlanningGoal: Adequate for dischargeOutcome: Progressing as expectedGoal: Effective communicationOutcome: Progressing as expectedProblem: Falls, Risk ofGoal: Absence of fallsOutcome: Progressing as expectedProblem: PainGoal: Control of pain at or below patient's documented comfort goalOutcome: Progressing as expectedGoal: Reduction in pain sensationOutcome: Progressing as expected 66399-9Egwd of care conpVY7054-57-34S25:52:28Plan of care noteTXT1.2.840.658414.1.13.104.2.7. 2.413016|[id number] for patient dixc61580-3XfvyZQRJOISGGWTDguhrzyvm C-CDA narrative text[id number] 3KBVNMSGXTEWWRLKWXPMOTB9615-02-74E1 0:52:281.2.840.897048.1.72.3.15|1.2 .840.708431.1.13.104.2.7.2.727879_2 [id number] [facility] 2024-01-07 17:16:15 0329-84-62E07:16:15 Pt & signed off unit; pt ambulating w/walker 30055-0Wgcei FeuuSS6570-53-68M01:18:48Nurse NoteTXT1.2.840.208451.1.13.104.2.7. 2.305286|[id number] for patient tpbk61829-3MgriKRUWVFDMHJCOvhlqeqrs C-CDA narrative text[id number] 0PYWHXQKXFDXSKEKQJFDTSZ2609-58-72S5 7:18:481.2.840.404581.1.72.3.15|1.2 .840.398487.1.13.104.2.7.2.727879_2 [id number] [facility] 2024-01-07 17:05:00 0973-81-13H23:05:00 Pt returned from MRI; attempted to replace tele leads; pt stated "not having it right now"; pt stated she did not want tele replaced & that she had removed nicotine patch; pt stated she wanted to go outside & would allow tele to be replaced when she returned to unit; explained to patient safety aspect of leaving, including fall precaution & requested that sign out sheet be signed; pt & acknowledged understanding 03963-3Accrm EbcrUE9469-57-04P27:15:29Nurse NoteTXT1.2.840.256318.1.13.104.2.7. 2.256739|[id number] for patient jsby55080-3RgtjTGOTTWILXNMOfulwrnsa C-CDA narrative textUT[address] JmxqH[id number] 7BWLLJJEWBXMNGOBACGLAHM2852-22-06S5 7:15:291.2.840.459163.1.72.3.15|1.2 .840.854140.1.13.104.2.7.2.727879_2 [id number] [facility] 2024-01-07 11:55:01 8331-46-80I60:55:01 Problem: Discharge PlanningGoal: Adequate for dischargeOutcome: Progressing as expectedProblem: Discharge PlanningGoal: Effective communicationOutcome: Progressing as expectedProblem: Falls, Risk ofGoal: Absence of fallsOutcome: Progressing as expectedProblem: PainGoal: Control of pain at or below patient's documented comfort goalOutcome: Progressing as expectedProblem: PainGoal: Reduction in pain sensationOutcome: Progressing as expected 33990-4Bkfa of care rjyhZH2705-46-16Y61:55:46Plan of care noteTXT1.2.840.835424.1.13.104.2.7. 2.742355|[id number] for patient wlrn41596-8ScnzDRKNIHGGXJNMahkfsxgt C-CDA narrative text[id number] 8MGYXZQLUOLSNHHQMNWJTCJ7800-49-46M8 1:55:461.2.840.167859.1.72.3.15|1.2 .840.320838.1.13.104.2.7.2.727879_2 [id number] [facility] 2024-01-07 03:32:12 4911-54-68Y56:32:12 Problem: Discharge PlanningGoal: Adequate for dischargeOutcome: Progressing as expectedGoal: Effective communicationOutcome: Progressing as expectedProblem: Falls, Risk ofGoal: Absence of fallsOutcome: Progressing as expectedProblem: PainGoal: Control of pain at or below patient's documented comfort goalOutcome: Progressing as expectedGoal: Reduction in pain sensationOutcome: Progressing as expected 76489-5Xuak of care bpexYF0183-02-56X84:32:18Plan of care noteTXT1.2.840.417529.1.13.104.2.7. 2.342572|[id number] for patient lpxn18330-8UpxyWZGBFNXWSAPPmmxfbrfj C-CDA narrative [id number] 8HWCXTDBGHMAEWCHHTFIUSF9860-09-00J6 3:32:181.2.840.421687.1.72.3.15|1.2 .840.091189.1.13.104.2.7.2.727879_2 [id number] [facility] 2024-01-06 18:18:13 1680-51-12W53:18:13 Problem: Discharge PlanningGoal: Adequate for dischargeOutcome: Progressing as expectedGoal: Effective communicationOutcome: Progressing as expectedProblem: Falls, Risk ofGoal: Absence of fallsOutcome: Progressing as expectedProblem: PainGoal: Control of pain at or below patient's documented comfort goalOutcome: Progressing as expectedGoal: Reduction in pain sensationOutcome: Progressing as expected 66662-6Casy of care aqmzBF7646-06-36I31:18:17Plan of care noteTXT1.2.840.843294.1.13.104.2.7. 2.524836|[id number] for patient dcbk39966-2NskaTPYBKKHCNMRGaywisvdz C-CDA narrative [id number] E Clare RN[address] StreetDuhiBfxbg[id number] 0UNPOUGBDKDOYYERMWKBZYN4957-28-34Q4 8:18:171.2.840.742263.1.72.3.15|1.2 .840.418398.1.13.104.2.7.2.727879_2 [id number] Thierry Mcdaniel RN [facility] 2024-01-06 17:11:08 7419-14-44E90:11:08 Handoff called to Evelyne Scott RN. Plan of care, chief complaint and pertinant lab values discussed. Transportation requested. 36257-8Yseextzjp department ExvgBL9856-78-55D68:11:42[facility] NoteTXT1.2.840.053077.1.13.104.2.7. 2.524441|[id number] for patient rauw71246-7LsloBMPBBAVHASBQoilnaqre C-CDA narrative [id number] Herndon RNUT91 [id number] 8IFIDJTROCRFHPDUYQZDCKK2385-71-67H5 7:11:421.2.840.493131.1.72.3.15|1.2 .840.680240.1.13.104.2.7.2.727879_2 [id number] Gaurav Pepe RN [facility] 2024-01-06 16:11:50 8011-07-16M46:11:50 Pt noted to have PVR 176. Provider notified. [address] department DqkfUH5870-91-97X24:12:16[facility] NoteTXT1.2.840.859176.1.13.104.2.7. 2.863371|[id number] for patient elgv66617-3JgxjEEBEKLDBDVNKdqvdfcqf C-CDA narrative textUT[id number] 4WHMGXUBWARBMVEWGCKIUDN2948-40-28P0 6:12:161.2.840.650650.1.72.3.15|1.2 .840.821346.1.13.104.2.7.2.727879_2 [id number] [facility] 2024-01-06 15:20:08 2280-02-87N96:20:08 Neurology at bedside. 45848-7Cycpcwwqo department EfpdPL5390-92-94R99:20:17[facility] NoteTXT1.2.840.738988.1.13.104.2.7. 2.674074|[id number] for patient zeop28053-3XqztPXRZNZBUJYVBchxwngtm C-CDA narrative textBoost My Ads[id number] 1AGLDALVASTNKPKFQLIUPQG8459-43-61V7 5:20:171.2.840.833953.1.72.3.15|1.2 .840.527534.1.13.104.2.7.2.727879_2 [id number] [facility] 2024-01-06 14:35:37 8880-51-95Z79:35:37 Attempted to take pt to for urine specimen, pt unable to void. 68939-9Luaaoqtfl department AubiMT5817-59-63Z80:35:59Emergency department NoteTXT1.2.840.941091.1.13.104.2.7. 2.194650|[id number] for patient bndy28876-9NatuJRUFBLKZNKOQkrpaldry C-CDA narrative [id number] 4IACFARTTRUOJOYYLFOTBTQ4353-37-46K8 4:35:591.2.840.221116.1.72.3.15|1.2 .840.249614.1.13.104.2.7.2.727879_2 [id number] [facility] 2024-01-06 13:46:02 6555-36-18D97:46:02 Srutih Soto is a 58 year old femalePresents to the ed with cc of MS flair up. Pt has history of MS and has been experiencing worsening of symptoms since end of November. Blair been having progressive right sided weakness, BLE numbness, right eye vision loss (With significantly existing L eye vision Loss) and left sided facial numbness. Pt appears to be in no active distress (aside from having anxiety), respirations even and unlabored, vss. Patient placed on continuous telemetry, pulse oximetry, and NBP monitoring. PIV established with labs collected and sent. informs pt that he will consult Neuro at this time. Pt states understanding of POC. 90256-9Kitedwuju department DprtIB8939-54-30A47:49:31[facility] department NoteTXT1.2.840.642607.1.13.104.2.7. 2.132202|[id number] for patient irqf52293-6EjntHIAMCADVGFGUvgvnyyvb C-CDA narrative textUT[address] Wh[id number] 2JYMYJOWHMLAMPTGDKUSIEH5478-49-74I5 3:49:311.2.840.223828.1.72.3.15|1.2 .840.820951.1.13.104.2.7.2.727879_2 [id number] [facility] 2024-01-06 13:05:49 4105-03-28H79:05:49 Sruthi Soto is a 58 year old female presenting to ED with c/o numbness to body. Patient with hx of MS and reports that she is concerned that she is having MS flair up. patient states that she was seen at OSH about 1 month ago and was given rx for prednisone. Patient states that she does not feel like she is getting any better. Patient to room for further eval 68328-9Gwiksbevb department Triage ijvqCU3700-27-15R08:07:02[facility] department Triage noteTXT1.2.840.014659.1.13.104.2.7. 2.829554|[id number] for patient four01726-7Glgmejbja department NoteLNNARRATIVEFormatted C-CDA narrative [id number] L Holmes RNUT[address] Sl[id number] 0KBLTGJQXVMPJPJXKCWYKTO5699-91-74B7 3:07:021.2.840.274155.1.72.3.15|1.2 .840.971995.1.13.104.2.7.2.727879_2 [id number] Kimberly Olvera RN [facility] 2024-01-06 12:53:00 6841-41-76T54:53:00 [facility] Emergency Department NotePatient Name: Sruthi Fisher of : 1965 58 year old femaleTreatment Room: [address] [place] [address] Record Number: [id number] Care Physician: Hien Chua VangPatient Escorted by: Self [9]Mode of Arrival: Personal means [1]EMS Treatment Prior to ED Arrival:GENERALIST treatment: NoneTravel and Exposure Screening:SymptomsDoes patient have any of these symptoms?: (not recorded)Exposure ScreeningHas patient had contact with someone with a communicable disease in the last month?: (not recorded)Diseases exposed to:: (not recorded)Is Patient ?: (not recorded)Exposure Date: (not recorded)Chief Complaint:Chief ComplaintPatient presents withNumbnessHistory of Present Illness:58 yo female with known multiple sclerosis, diagnosed in 2017 at [facility], (optic neuritis at that time MRI (+)), on tecfidera for about a year, lost insurance and has not followed up. Just before Blas started to have vision changes in the right eye (opposite the side initially affected), then about 12/11/23 developed dizziness, nausea, left facial numbness, tongue numbness, trouble swallowing any non soft foods, and lower leg numbness. Then developed left upper arm numbness. Was seen at [facility] at that time, put on 5 day course of prednisone, and has continued to worsen. Very anxious at this time over her health, immediately stating she does not want a lumbar puncture.Also has HTN, but not on prescribed carvedilol and losartan.Past Medical History/Immunizations:Past Medical History:Diagnosis DateDiverticulitisHTN (hypertension)Hx of hysterectomyKidney stonesPneumonia due to unspecified StreptococcusSmokerSpinal stenosisTetanus received in last 5 years: UnknownChildhood immunizations: Jp-ea-cnzsIpeetjdqj:AllergiesAllerg en ReactionsSulfa (Sulfonamide Antibiotics) RashPast Social History:Tobacco UseEvery DaySmokeless Tobacco: Never used smokeless tobacco.Past Surgical History:History reviewed. No pertinent surgical history.Review of Systems:Review of SystemsConstitutional: Positive for fatigue. Negative for chills, diaphoresis and fever.HENT: Negative for congestion, rhinorrhea and sore throat.Eyes: Positive for visual disturbance. Negative for pain and redness.Respiratory: Negative for cough, shortness of breath and wheezing.Cardiovascular: Negative for chest pain, palpitations and leg swelling.Gastrointestinal: Positive for constipation (history of this from tecfidera). Negative for abdominal pain, diarrhea, nausea and vomiting.Genitourinary: Negative for dysuria, frequency and flank pain.Musculoskeletal: Positive for back pain. Negative for neck pain.Skin: Negative for wound.Neurological: Positive for numbness. Negative for dizziness, seizures, facial asymmetry, speech difficulty, weakness and headaches.Hematological: Negative for adenopathy. Does not bruise/bleed easily.Physical Exam:ED Triage Vitals [01/06/24 1307]Weight 74.8 kg (165 lb)Actual or estimatedHeightBP (!) 137/95Pulse 74Resp 20Temp 36.4 ?C (97.5 ?F)Temp srcSpO2 99 %Measured onPhysical ExamVitals and nursing note reviewed.Constitutional:General: She is not in acute distress.Appearance: Normal appearance.HENT:Head: Normocephalic and atraumatic.Nose: Nose normal.Mouth/Throat:Mouth: Mucous membranes are moist.Pharynx: No oropharyngeal exudate or posterior oropharyngeal erythema.Comments: Tongue midline, protrudes left and right normally, with normal toneEyes:General: No visual field deficit or scleral icterus.Extraocular Movements: Extraocular movements intact.Pupils: Pupils are equal, round, and reactive to light.Comments: Decreased acuity both eyes, subjectively worse in the rightCardiovascular:Rate and Rhythm: Normal rate and regular rhythm.Pulses: Normal pulses.Heart sounds: Normal heart sounds. No murmur heard.Pulmonary:Effort: Pulmonary effort is normal.Breath sounds: Normal breath sounds.Abdominal:General: Bowel sounds are normal.Palpations: Abdomen is soft.Tenderness: There is no abdominal tenderness.Musculoskeletal:General: Normal range of motion.Cervical back: Normal range of motion and neck supple.Right lower leg: No edema.Left lower leg: No edema.Lymphadenopathy:Cervical: No cervical adenopathy.Skin:General: Skin is warm.Capillary Refill: Capillary refill takes less than 2 seconds.Findings: No rash.Neurological:Mental Status: She is alert and oriented to person, place, and time.GCS: GCS eye subscore is 4. GCS verbal subscore is 5. GCS motor subscore is 6.Cranial Nerves: No dysarthria or facial asymmetry.Sensory: Sensory deficit present.Motor: No weakness, tremor, abnormal muscle tone or pronator drift.Comments: No detected field deficit in visionLEft V2 distribution decreased sensationLEft upper lateral arm decreased sensationRight thigh to foot decreased sensationLeft lower leg decreased sensationRadiology:No orders to displayLab Results:Lab ResultsCBC WITH DIFF - AbnormalResult Value Ref RangeWBC 8.35 4.30 - 11.10 10*3/?LRBC 5.32 (*) 3.93 - 5.25 10*6/?LHGB 15.0 11.6 - 15.0 g/dLHCT 45.0 35.7 - 45.2 %MCV 84.6 80.6 - 95.5 fLMCH 28.2 25.9 - 32.8 pgMCHC 33.3 31.6 - 35.1 g/dLRDW-SD 41.2 39.0 - 49.9 fLRDW-CV 13.3 12.0 - 15.5 %PLT 240 166 - 358 10*3/?LMPV 10.8 9.5 - 12.9 fLNRBC/100 WBC 0.0 0.0 - 10.0 /100 WBCsNRBC x10^3 <0.01 10*3/?LGRAN MAT (NEUT) % 71.5 %IMM GRAN % 0.60 %LYMPH % 20.4 %MONO % 6.1 %EOS % 1.0 %BASO % 0.4 %GRAN MAT x10^3(ANC) 5.98 1.88 - 7.09 10*3/uLIMM GRAN x10^3 0.05 0.00 - 0.06 10*3/uLLYMPH x10^3 1.70 1.32 - 3.29 10*3/uLMONO x10^3 0.51 0.33 - 0.92 10*3/uLEOS x10^3 0.08 0.03 - 0.39 10*3/uLBASO x10^3 0.03 0.01 - 0.07 10*3/uLCOMP. METABOLIC PANEL (76179) - AbnormalNA 140 135 - 145 mmol/LK 3.7 3.5 - 5.0 mmol/LCL 109 (*) 98 - 108 mmol/LCO2 TOTAL 24 23 - 31 mmol/LAGAP 7 2 - 16BUN 17 7 - 23 mg/dLGLUCOSE 87 70 - 110 mg/dLCREATININE 0.95 0.50 - 1.04 mg/dLTOTAL BILI 0.8 0.1 - 1.1 mg/dLCALCIUM 9.3 8.6 - 10.6 mg/Lolita PROTEIN 6.9 6.3 - 8.2 g/dLALBUMIN 4.2 3.5 - 5.0 g/dLALK PHOS 80 34 - 122 U/LALTv 21 5 - 35 U/LAST(SGOT) 24 13 - 40 U/LeGFR 70.0 mL/min/1.34l2OHRUAYJTP - NormalMAGNESIUM 2.3 1.7 - 2.4 mg/dLURINALYSISEXTRA TUBE LT. BLUEEXTRA TUBE DK. GREENEKG:If EKG completed, see Procedure Note.Orders and Treatments:Orders Placed This EncounterProceduresCBC WITH DIFFCOMP. METABOLIC PANEL (93311)URINALYSISMagnesiumConsult NeurologyNo orders of the defined types were placed in this encounter.First Provider Eval:ED EventsDate/Time Event User Bziftjng53/05/24 1317 Medical Screening Begins JESSIE GRIMALDO MD --01/06/24 1317 First Provider Evaluation JESSIE GRIMALDO MD --ED COURSEED Course as of 01/06/24 1530Mon Jan [id number] Neurology returned page, will come to see the patient [GR]1322 Hasn't seen neurologist seen 2018, been stable until just prior to [place] Was on tecfedera (sp?). Last dose in 2018.[GR]ED Course User Index[GR] Jessie Grimaldo, MDDiagnosis/Impression as of 01/06/24 1530Multiple sclerosis exacerbationChange in visionBilateral leg numbnessProcedures:ProceduresMDM:Me dical Decision MakingConcern for optic neuritis and MS flare, given history of same, and sensory changes and vision changesConsult Neurology, check basic labs.MRI reviewed from 2017 done here, and shows characteristic lesions.Problems Addressed:Bilateral leg numbness: acute illness or injuryChange in vision: acute illness or injuryMultiple sclerosis exacerbation: acute illness or injury with systemic symptoms that poses a threat to life or bodily functionsAmount and/or Complexity of Data ReviewedLabs: ordered. Decision-making details documented in ED Course.Discussion of management or test interpretation with external provider(s): Discussed with Dr. Witt, neurology, who has seen patientRiskDecision regarding hospitalization.Diagnosis or treatment significantly limited by social determinants of health.Risk Details: Patient has no access to insurance and not been able to afford medications or visits to neurologyFlowsheet Documentation:Scoring Tools:No data recordedDisposition/Condition:ED DispositionNoneDischarge Medications:Patient's MedicationsSTART taking these medicationsNo medications on fileCONTINUE taking these medications which have NOT CHANGEDASPIRIN 81 MG CHEWABLE TABLET Take 81 mg by mouth daily. Indications: Safety coded- non chewableCARVEDILOL 6.25 MG TABLET Take 6.25 mg by mouth 2 (two) times daily with meals.LOSARTAN 50 MG TABLET Take 50 mg by mouth daily.TYLENOL-CODEINE #3 300-30 MG TABLET Take 2 tablets by mouth every 4 (four) hours as needed for Pain (scale 1-3).START taking Modified Medications as PrescribedNo medications on fileSTOP taking these medicationsNo medications on fileFollow-up:Electronically signed by:Jessie Grimaldo MD01/06/24 1530 90557-3[facility] Emergency department AlvrXF6740-80-27S36:30:15Physician Emergency department NoteTXT1.2.840.764143.1.13.104.2.7. 2.029655|[id number] for patient vbgc93750-5Jauiouiaf department NoteLNNARRATIVEFormatted C-CDA narrative text[address] Cf[id number] 4MKSUXWXMUBPVZUVQGGGPOJ3406-86-17M2 5:30:151.2.840.090013.1.72.3.15|1.2 .840.398677.1.13.104.2.7.2.727879_2 [id number] [facility]
[2024-05-18] MEDS ORDERED: hydrOXYzine HCL 25 MG TAB ONE (12:59)
[2024-05-18] MEDS ORDERED: ACETAMINOPHEN 500 MG TAB ONE (12:59)
[2024-05-18] MEDS ORDERED: DOXYCYCLINE 100 MG CAP PO ONE (12:59)
[2024-05-18] MEDS ORDERED: IBUPROFEN 400 MG TAB ONE (12:59)
--- NOTE | 2024-05-18 13:50 | ER ---
Nurse's Notes [facility] Name: Sruthi Tapia Age: 58 yrs Sex: Female : 1965 Arrival Date: 05/18/2024 Time: 12:25 Bed 10 Private MD: Diagnosis: Anxiety disorder, unspecified;Cutaneous abscess of left lower limb;Cellulitis of left lower limb Presentation: 05/18 12:33 Chief complaint: Patient states: "I am having a panic attack and I think I have an ant aa5 bite on my left leg". Coronavirus screen: At this time, the client does not indicate any symptoms associated with coronavirus-19. Ebola Screen: Patient denies travel to an Ebola-affected area in the 21 days before illness onset. Initial Sepsis Screen: Does the patient meet any 2 criteria? No. Patient's initial sepsis screen is negative. Does the patient have a suspected source of infection? No. Patient's initial sepsis screen is negative. Risk Assessment: Do you want to hurt yourself or someone else? Patient reports no desire to harm self or others. Onset of symptoms was May 18, 2024. 12:33 Acuity: REANNA 3 aa5 12:33 Method Of Arrival: Wheelchair aa5 Historical: - Allergies: 12:32 Sulfa (Sulfonamide Antibiotics); aa5 - PMHx: 12:32 chronic back pain; enlarged aorta; Hypertensive disorder; Multiple Sclerosis; spinal aa5 stenosis; Anxiety; - PSHx: 12:32 Tonsillectomy; Total abdominal hysterectomy; aa5 - Immunization history:: Adult Immunizations not up to date. - Infectious Disease History:: Denies. - Social history:: Smoking status: unknown. Screenin:46 [facility] ED Fall Risk Assessment (Adult) History of falling in the last 3 months, as6 including since admission No falls in past 3 months (0 pts) Confusion or Disorientation No (0 pts) Intoxicated or Sedated No (0 pts) Impaired Gait No (0 pts) Mobility Assist Device Used Yes (1 pt) Altered Elimination No (0 pt) Score/Fall Risk Level 0 - 2 = Low Risk Oriented to surroundings, Maintained a safe environment, Educated pt \\T\\ family on fall prevention, incl call for assistance when getting out of bed, Assessed \\T\\ reinforced patient's understanding of fall precautions, Provided non-skid footwear, Hourly rounding (assess needs \\T\\ fall precautionary measures) done. Abuse screen: Denies threats or abuse. Denies injuries from another. Nutritional screening: No deficits noted. Tuberculosis screening: No symptoms or risk factors identified. Assessment: 12:44 General: Appears uncomfortable, Behavior is anxious, crying. Pain: Complains of pain in as6 left leg. Respiratory: Respiratory effort is even, unlabored, Respiratory pattern is regular, symmetrical. Derm: Wound noted medial aspect of left calf Wound is red, warm, blistering. 13:23 Reassessment: No changes from previously documented assessment. pt repeating "help me". as6 Vital Signs: 12:33 BP 117 / 99; Pulse 83; Resp 30 S; Temp 98.9(TE); Pulse Ox 96% on R/A; Weight 56.25 kg aa5 (R); Height 5 ft. 5 in. (R); 13:22 BP 139 / 87; Pulse 73; Resp 18 S; Pulse Ox 95% on R/A; as6 12:33 Body Mass Index 20.63 (56.25 kg, 165.1 cm) aa5 ED Course: 12:27 Patient arrived in ED. mr 12:27 Lance Crockett MD is Attending Physician. ec2 12:32 Arm band placed on. aa5 12:35 Triage completed. aa5 12:36 Gabino Coe, JANET is Primary Nurse. as6 12:45 Bed in low position. Call light in reach. Side rails up X2. Adult w/ patient. as6 14:12 Provided Education on: wound care, abx yeaching. as6 14:12 Assist provider with I \\T\\ D: of an abscess on left medial maradiaga Set up I\\T\\D tray. as 6 Performed by Lance Crockett MD Dressing with band aid. Patient did not have IV access during this emergency room visit. Administered Medications: 13:19 Not Given (Patient Refused): wqerfsesmfz62 mg PO once as6 13:19 Drug: Doxycycline PO 100 mg PO once Route: PO; as6 14:14 Follow up: Response: No adverse reaction as6 13:19 Drug: Acetaminophen PO 1000 mg PO once Route: PO; as6 14:14 Follow up: Response: No adverse reaction as6 13:19 Drug: Ibuprofen PO 800 mg PO once Route: PO; as6 14:14 Follow up: Response: No adverse reaction as6 Medication: 14:12 VIS not applicable for this client. as6 Outcome: 13:49 Discharge ordered by . ec2 14:12 Discharged to home via wheelchair, with significant other, as6 14:12 Condition: stable 14:12 Discharge instructions given to patient, Instructed on discharge instructions, follow up and referral plans. medication usage, wound care, Demonstrated understanding of instructions, follow-up care, medications, wound care, Prescriptions given X 1, 14:13 Patient left the ED. as6 Signatures: Giovana Ramirez, Reg Reg mr CastRissa lynne, RN RN aa5 Gabino Coe, JANET RN as6 Lance Crockett MD MD ec2
--- NOTE | 2024-05-18 13:50 | EDPHYS ---
Physician Documentation [facility] Name: Sruthi Tapia Age: 58 yrs Sex: Female : 1965 Arrival Date: 05/18/2024 Time: 12:25 Bed 10 Private MD: ED Physician Lance Crockett HPI: 05/18 12:53 This 58 yrs old Female presents to ER via Wheelchair with complaints of ec2 Anxiety, Insect Bite. 12:53 Patient arrives today for evaluation of a wound on her left calf. States that she ec2 thinks she was bitten by something and now has redness and swelling. Denies fever chills, nausea or vomiting. History of anxiety, patient is markedly anxious.. Historical: - Allergies: 12:32 Sulfa (Sulfonamide Antibiotics); aa5 - PMHx: 12:32 chronic back pain; enlarged aorta; Hypertensive disorder; Multiple Sclerosis; spinal aa5 stenosis; Anxiety; - PSHx: 12:32 Tonsillectomy; Total abdominal hysterectomy; aa5 - Immunization history:: Adult Immunizations not up to date. - Infectious Disease History:: Denies. - Social history:: Smoking status: unknown. ROS: 12:53 Constitutional: as per hpi ec2 Exam: 12:53 Constitutional: GEN: NAD Head: atraumatic Eyes: EOMI Ears: External ears are ec2 normal. CV: regular rate LUNGS: no respiratory distress ABD: non-distended SKIN: 1 cm abscess noted to the left inner calf, surrounding erythema, no significant crepitus appreciated. MSK: no evidence of trauma NEURO: moves all extremities equally Vital Signs: 12:33 BP 117 / 99; Pulse 83; Resp 30 S; Temp 98.9(TE); Pulse Ox 96% on R/A; Weight 56.25 kg aa5 (R); Height 5 ft. 5 in. (R); 13:22 BP 139 / 87; Pulse 73; Resp 18 S; Pulse Ox 95% on R/A; as6 12:33 Body Mass Index 20.63 (56.25 kg, 165.1 cm) aa5 Procedures: 13:49 I \T\ D: Incision and drainage was performed for an abscess of the left Prepped with ec2 alcohol, Incised with #11 blade. Drained moderate amount Dressing: sterile 4x4 gauze, the patient tolerated the procedure well. MDM: 12:27 Patient medically screened. ec2 12:53 Data reviewed: vital signs. ED course: Patient arrives today for evaluation of swelling ec2 and redness of her left leg. Examination remarkable for skin findings as above. Swelling appears amenable to drainage, will drain with incision and drainage, start the patient on antibiotics. Considered differential diagnosis including abscess, cellulitis, doubt deeper space infection. . 13:50 ED course: I\T\D completed, moderate amount of discharge removed. Will discharge home. ec2 Turn precautions given.. Administered Medications: 13:19 Not Given (Patient Refused): kqryzqyyzrs88 mg PO once as6 13:19 Drug: Doxycycline PO 100 mg PO once Route: PO; as6 14:14 Follow up: Response: No adverse reaction as6 13:19 Drug: Acetaminophen PO 1000 mg PO once Route: PO; as6 14:14 Follow up: Response: No adverse reaction as6 13:19 Drug: Ibuprofen PO 800 mg PO once Route: PO; as6 14:14 Follow up: Response: No adverse reaction as6 Disposition Summary: 05/18/24 13:49 Discharge Ordered Notes: Location: Home ec2 Condition: Stable ec2 Diagnosis - Anxiety disorder, unspecified ec2 - Cutaneous abscess of left lower limb ec2 - Cellulitis of left lower limb ec2 Followup: ec2 - With: Private Physician - When: - Reason: Re-evaluation by your physician Discharge Instructions: - Discharge Summary Sheet ec2 - Panic Attack ec2 - Cellulitis, Adult, Pszu-ho-Epfk ec2 Forms: - Medication Reconciliation Form ec2 - Antibiotic Education ec2 - Prescription Opioid Use ec2 - Patient Portal Instructions ec2 - Leadership Thank You Letter ec2 Prescriptions: - Doxycycline Hyclate 100 mg Oral tablet - take 1 tablet ORAL route every 12 hours; 14 tablet; Refills: 0, Product ec2 Selection Permitted Signatures: Rissa Cast RN RN aa5 Gabino Coe RN RN as6 Lance Crockett MD MD ec2
[2024-05-18 14:36] VITALS: BP 139/87; TEMP 98.9; O2SAT 95
== END 2024-05-18 14:13 | disposition home or self-care (01) ==
LOC: ER 12:25
PROC: 0H9LXZZ Drainage of Left Lower Leg Skin, External Approach (ICD-10-PCS; principal; 2024-05-18)
DX: L02.416 Cutaneous abscess of left lower limb (principal); L03.116 Cellulitis of left lower limb; F41.9 Anxiety disorder, unspecified
CPT/HCPCS: 99283